=== PATIENT | female | born 1960 | race Caucasian/White ===

== ENCOUNTER 2019-12-06 08:01 | Outpatient (CLI) | payer OTHER, SELFPAY ==
[2019-12-06 08:29] LABS: Basophils Absolute Auto 0.1 K/mm3 (0.0-0.1); Eosinophils Absolute Auto 0.3 K/mm3 (0-0.3); Eosinophils Percent Auto 4.4 % (0-4.4); Hematocrit 43.3 % (37.0-47.0); Hemoglobin 14.5 g/dL (12.0-15.0); Immature Granulocyte Absolute 0.02 K/mm3 (0.00-0.031); Immature Granulocyte Percent A 0.3 % (0-0.5); Mean Corpuscular HGB Conc 33.5 g/dl (32-36); Mean Corpuscular Hemoglobin 30.1 pg (26-34); Mean Platelet Volume 9.9 fl (7.4-10.4); Monocytes Absolute Auto 0.6 K/mm3 (0.1-0.6); Monocytes Percent Auto 8.4 % (2.6-8.5); Neutrophils Absolute Auto 3.7 K/mm3 (1.3-6.7); Neutrophils Percent Auto 53.9 % (45.5-73.1); Platelet Count Result 360 k/mm3 (150-375); Red Blood Count 4.81 M/mm3 (4.2-5.4); Red Cell Distribution Width 12.7 % (11.5-14.5); White Blood Count 6.9 K/mm3 (4.5-10.0)
[2019-12-06 08:36] LABS: Hemoglobin A1C 5.7 % (<5.7)
[2019-12-06 08:40] LABS: Alanine Aminotransferase 15 U/L (4-35); Albumin Level 4.5 g/dL (3.5-5.1); Alkaline Phosphatase 103 U/L (38-126); Anion Gap 11.9 mmol/L (7-16); Aspartate Amino Transferase 24 U/L (14-36); Bilirubin,Total 1.3 mg/dL (0.2-1.3); Blood Urea Nitrogen 14 mg/dL (7-17); Calcium 9.4 mg/dL (8.4-10.2); Carbon Dioxide 30 mmol/L (22-30); Chloride 100 mmol/L (98-107); Cholesterol 244 mg/dL (0-200); Estimated Glomerular Filt Rate > 60; Glucose 103 mg/dL (65-105); HDL Direct 33 mg/dL; Potassium 3.9 mmol/L (3.4-5.0); Sodium 138 mmol/L (137-145); Triglycerides 277 mg/dL (<150)
[2019-12-06 08:51] LABS: LDL Cholesterol Direct 137 mg/dL
[2019-12-06 09:20] LABS: Vitamin D 25 Hydroxy 48.9 ng/mL
== END 2019-12-06 08:02 | disposition home or self-care (01) ==
PROVIDERS: PCP Family Medicine; Visit Provider Nurse Practitioner
DX: R73.9 Hyperglycemia, unspecified (principal); I10 Essential (primary) hypertension; E78.5 Hyperlipidemia, unspecified; E55.9 Vitamin D deficiency, unspecified
CPT/HCPCS: 36415; 80053; 80061; 82306; 83036; 85025

== ENCOUNTER 2020-04-11 12:27 | Outpatient (CLI) | payer OTHER, SELFPAY ==
--- NOTE | ~2020-04-11 | MM_ITS ---
EXAMINATION: MM screening nancy BI w soila HISTORY: Screening mammogram TECHNIQUE: Craniocaudal and mediolateral oblique 3-D tomosynthesis images were obtained and synthetic 2-D images were generated. CAD analysis was submitted and interpreted. COMPARISON: 01/2019, 11/25/2017, 11/21/2015 bilateral digital screening mammogram examinations BREAST PARENCHYMAL COMPOSITION: There are scattered areas of fibroglandular density. FINDINGS: There is no evidence of suspicious mass, calcification, or architectural distortion to sugg est malignancy in either breast. There has been no suspicious interval change. IMPRESSION: 1. No mammographic evidence of malignancy. 2. Recommend routine screening mammography in one year. BI-RADS Category 1: Negative Reviewed, dictated and finalized at location A. 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
--- NOTE | ~2020-04-11 | DEXA_ITS ---
Bone Density Report Name: Sly Schaefer Age: 59 Sex: Female Ethnicity: White Date of : 1960 Indication: osteopenia; height loss; prior fracture; hysterectomy; Referring Provider: SABINE BURGOS Study: Bone densitometry was performed. Exam Date: April 11, 2020 Accession number: [id number] Bone Density: Region BMD T-score Z-score Classification AP Spine (L1-L4) 0.885 -1.5 0.0 Osteopenia Femoral Neck (Left) 0.674 -1.6 -0.3 Osteopenia Total Hip (Left) 0.879 -0.5 0.5 Normal Total Hip Bilateral Avg 0.864 -0.7 0.4 Normal Femoral Neck (Right) 0.675 -1.6 -0.3 Osteopenia Total Hip (Right) 0.848 -0.8 0.2 Normal World Health Organization criteria for BMD impression classify patients as: Normal (T-score at or above -1.0), Osteopenia (T-score between -1.0 and -2.5), or Osteoporosis (T-score at or below -2.5). 10-year Fracture Risk(1): Major Osteoporotic Fracture 13% Hip Fracture 1.1% Reported Risk Factors: [place] (), Neck BMD=0.675, BMI=34.4, previous fracture (1) FRAX(R) Version 3.08. Fracture probability calculated for an untreated patient. Fracture probability may be lower if the patient has received treatment. Previous Exams: Region Exam Age BMD T-score BMD Change BMD Change Date g/cm2 vs Baseline vs Previous AP Spine(L1-L4) 04/11/2020 59 0.885 -1.5 -0.041(-4.4%)# -0.019(-2.1%) 11/25/2017 57 0.904 -1.3 -0.022(-2.3%)# 0.008(0.9%) 11/21/2015 55 0.896 -1.4 -0.030(-3.2%)# 0.039(4.5%)# 01/11/2013 52 0.857 -1.7 -0.069(-7.4%)# -0.078(-8.4%)# 09/17/2010 50 0.935 -1.0 0.009(1.0%) 0.009(1.0%) 11/18/2007 47 0.926 -1.1 Total Hip(Left) 04/11/2020 59 0.879 -0.5 0.009(1.0%)# -0.052(-5.6%)* 11/25/2017 57 0.931 -0.1 0.061(7.0%)# 0.028(3.2%)* 11/21/2015 55 0.902 -0.3 0.032(3.7%)# 0.044(5.1%)# 01/11/2013 52 0.858 -0.7 -0.012(-1.4%)# -0.026(-2.9%)# 09/17/2010 50 0.884 -0.5 0.014(1.6%) 0.014(1.6%) 11/18/2007 47 0.870 -0.6 Total Hip(Right) 04/11/2020 59 0.848 -0.8 0.012(1.4%)# -0.069(-7.5%)* 11/25/2017 57 0.917 -0.2 0.081(9.6%)# 0.055(6.4%)* 11/21/2015 55 0.862 -0.7 0.025(3.0%)# 0.013(1.6%)# 01/11/2013 52 0.849 -0.8 0.012(1.4%)# 0.005(0.6%)# 09/17/2010 50 0.843 -0.8 0.007(0.8%) 0.007(0.8%) 11/18/2007 47 0.837 -0.9 *Denotes significance at 95% confidence level, LSC for AP Spine = 0.022 g/cm2, LSC for Total Hip = 0.027 g/cm2 Clinical Information Provided by Patient:
== END 2020-04-11 12:28 | disposition home or self-care (01) ==
LOC: ANHIMG 12:28
PROVIDERS: PCP Family Medicine; Visit Provider Obstetrics & Gynecology
DX: Z12.31 Encounter for screening mammogram for malignant neoplasm of breast (principal); N95.1 Menopausal and female climacteric states; M85.88 Other specified disorders of bone density and structure, other site; M85.852 Other specified disorders of bone density and structure, left thigh; M85.851 Other specified disorders of bone density and structure, right thigh
CPT/HCPCS: 77063; 77067; 77080

== ENCOUNTER 2020-07-20 11:17 | Outpatient (CLI) | payer OTHER, SELFPAY | END 2020-07-20 11:18 | disposition home or self-care (01) | LOC: ANHCOVIDVC 11:18 | PROVIDERS: PCP Family Medicine | DX: Z23 Encounter for immunization (principal) | CPT/HCPCS: 0001A; 91300 ==

== ENCOUNTER 2020-08-10 11:15 | Outpatient (CLI) | payer OTHER, SELFPAY | END 2020-08-10 11:16 | disposition home or self-care (01) | LOC: ANHCOVIDVC 11:15 | PROVIDERS: PCP Family Medicine | DX: Z23 Encounter for immunization (principal) | CPT/HCPCS: 0002A; 91300 ==

== ENCOUNTER 2020-10-01 08:06 | Outpatient (CLI) | payer OTHER, SELFPAY ==
[2020-10-01 08:26] LABS: Hematocrit 42.6 % (37.0-47.0); Hemoglobin 14.2 g/dL (12.0-15.0); Mean Corpuscular HGB Conc 33.3 g/dl (32-36); Mean Corpuscular Hemoglobin 30.4 pg (26-34); Mean Corpuscular Volume 91.2 fl (80-100); Platelet Count Result 296 k/mm3 (150-375); Red Blood Count 4.67 M/mm3 (4.2-5.4); Red Cell Distribution Width 13.2 % (11.5-14.5); White Blood Count 7.1 K/mm3 (4.5-10.0)
[2020-10-01 08:36] LABS: Alanine Aminotransferase 14 U/L (4-35); Albumin Level 4.4 g/dL (3.5-5.1); Alkaline Phosphatase 76 U/L (38-126); Anion Gap 5 mmol/L (8-16); Aspartate Amino Transferase 25 U/L (14-36); Bilirubin,Total 1.1 mg/dL (0.2-1.3); Blood Urea Nitrogen 17 mg/dL (7-17); Calcium 9.5 mg/dL (8.4-10.2); Carbon Dioxide 32 mmol/L (22-30); Chloride 104 mmol/L (98-107); Cholesterol 146 mg/dL (0-200); Estimated Glomerular Filt Rate > 60; Glucose 98 mg/dL (65-105); HDL Direct 41 mg/dL; Potassium 3.6 mmol/L (3.4-5.0); Sodium 141 mmol/L (137-145); Triglycerides 106 mg/dL (<150)
[2020-10-01 08:46] LABS: LDL Cholesterol Direct 72 mg/dL
[2020-10-01 08:53] LABS: Hemoglobin A1C 5.7 % (<5.7)
== END 2020-10-01 08:07 | disposition home or self-care (01) ==
LOC: ANHLAB 08:07
PROVIDERS: PCP Family Medicine; Visit Provider Nurse Practitioner Family
DX: R53.83 Other fatigue (principal); R73.03 Prediabetes; E78.5 Hyperlipidemia, unspecified; I10 Essential (primary) hypertension
CPT/HCPCS: 36415; 80053; 80061; 83036; 84443; 85027

== ENCOUNTER 2021-08-21 07:35 | Outpatient (CLI) | payer OTHER, SELFPAY ==
--- NOTE | 2021-08-21 07:40 | ECHO_ITS ---
Patient Info Name: Sly Schaefer Age: 61 years : 1960 Gender: Female Ht: 52 in Wt: 172 lbs BSA: 1.75 m2 HR: 88 bpm BP: 154 / 96 mmHg Heart Rhythm: Sinus Rhythm Exam Date: 08/21/2021 8:07 AM Exam Location: [facility] Patient Status: Outpatient Admit Date: 08/21/2021 Staff Ordering Physician: Dyana Pickett NP Supervisor Metal Hanging: Michael Pena, LB, RT Attending Provider: Lis Lorenzana MD Referring Physician: Nieves GOODWIN; Exam Type: CA echo doppler color flow Study Info Indications R01.1 - Cardiac murmur, unspecified Complete two-dimensional, color flow and Doppler transthoracic echocardiogram is performed. Strain analysis performed. Summary 1. Complete two-dimensional, color flow and Doppler transthoracic echocardiogram is performed. 2. Strain analysis performed. 3. Global longitudinal strain is borderline at -16 %. 4. Left ventricular chamber dimension is normal. 5. Left ventricular systolic function is normal, estimated at 65-70%. 6. There is severe asymmetric septal increased left ventricular wall thickness. 7. The left ventricular diastolic function is grade I diastolic dysfunction. 8. The aortic valve is possibly bicuspid. 9. There is mild aortic valve regurgitation. 10. Chordal systolic anterior motion. 11. There is mild mitral valve regurgitation. 12. There is mild tricuspid valve regurgitation. Left Ventricle Global longitudinal strain is borderline at -16 %. Left ventricular chamber dimension is normal. Left ventricular systolic function is normal, estimated at 65-70%. There is severe asymmetric septal increased left ventricular wall thickness. The left ventricular diastolic function is grade I diastolic dysfunction. Right Ventricle Right ventricular chamber dimension is normal. Right ventricular systolic function is normal. Left Atria Left atrial chamber dimension is normal. Right Atria Right atrial chamber dimension is normal. Atrial Septum Intact interatrial septum visualized by color flow imaging. Aortic Valve The aortic valve is possibly bicuspid. There is no aortic valve stenosis. There is mild aortic valve regurgitation. Pulmonic Valve The pulmonic valve is normal. There is no pulmonic valve stenosis. There is trace pulmonic regurgitation. Mitral Valve Chordal systolic anterior motion. The mitral valve has normal leaflets. There is no mitral valve stenosis. There is mild mitral valve regurgitation. Tricuspid Valve The tricuspid valve leaflets are normal. There is no significant tricuspid valve stenosis. There is mild tricuspid valve regurgitation. No pulmonary hypertension, estimated pulmonary arterial systolic pressure is 24 mmHg. Pericardium/Pleural The pericardium appears normal. There is no pericardial effusion. Inferior Vena Cava Normal inferior vena cava with >50% collapse upon inspiration consistent with normal right atrial pressure, 5 mmHg. Aorta The aortic root size at the sinus of Valsalva is normal. Left Ventricular Outflow Tract Name Value Normal LVOT 2D LVOT Diameter 2.0 cm LVOT Doppler LVO
== END 2021-08-21 07:36 | disposition home or self-care (01) ==
LOC: ANHCARD 07:36
PROVIDERS: PCP Family Medicine; Visit Provider Family Medicine
DX: R01.1 Cardiac murmur, unspecified (principal); I35.1 Nonrheumatic aortic (valve) insufficiency; I34.0 Nonrheumatic mitral (valve) insufficiency; I36.1 Nonrheumatic tricuspid (valve) insufficiency
CPT/HCPCS: 93306

== ENCOUNTER 2021-11-20 09:00 | Outpatient (CLI) | payer OTHER, SELFPAY ==
[2021-11-20 11:26] LABS: Alanine Aminotransferase 12 U/L (6-35); Albumin Level 4.2 g/dL (3.5-5.1); Alkaline Phosphatase 75 U/L (38-126); Anion Gap 5 mmol/L (8-16); Aspartate Amino Transferase 21 U/L (14-36); Bilirubin,Total 0.8 mg/dL (0.2-1.3); Blood Urea Nitrogen 17 mg/dL (7-17); Calcium 9.2 mg/dL (8.4-10.2); Carbon Dioxide 31 mmol/L (22-30); Chloride 104 mmol/L (98-107); Cholesterol 159 mg/dL (0-200); Estimated Glomerular Filt Rate > 60; Glucose 96 mg/dL (65-110); HDL Direct 31 mg/dL; Potassium 3.9 mmol/L (3.4-5.0); Sodium 140 mmol/L (137-145); Triglycerides 160 mg/dL (<150)
[2021-11-20 11:37] LABS: LDL Cholesterol Direct 69 mg/dL
[2021-11-20 13:43] LABS: Hemoglobin A1C 5.5 % (<5.7)
== END 2021-11-20 09:01 | disposition home or self-care (01) ==
LOC: ANHLAB 09:02
PROVIDERS: PCP Family Medicine; Visit Provider Nurse Practitioner Family
DX: R73.03 Prediabetes (principal); E78.5 Hyperlipidemia, unspecified; I10 Essential (primary) hypertension
CPT/HCPCS: 36415; 80053; 80061; 83036

== ENCOUNTER 2021-12-17 00:14 | Day surgery (SDC) | payer OTHER, SELFPAY ==
[2021-12-03 13:39] VITALS: BMI 28.4
[2021-12-17 09:51] VITALS: BP 132/81; PULSE 87; RESP 18; TEMP 36.8; O2SAT 98
[2021-12-17] MEDS: LACTATED RINGERS 1,000 ML 150 ML IV CONT (10:00)
--- NOTE | 2021-12-17 10:11 | PM.IMHP ---
H&P: HPI History of Present Illness Date/Time: 12/17/21 10:11 Chief Complaint: Family history of colon cancer. Narrative: This is a 61-year-old white female patient presents for screening colonoscopy. Patient has a family history of colon cancer in her mother. Patient himself had colon polyps in 2014. Patient presents today for surveillance colonoscopy. Patient reports that her current weight appetite bowel movements are normal. She denies abdominal pain. Has had no bleeding. Review of Systems Review of Systems: Review of systems noncontributory. [facility] Past Medical History Medical History GERD without esophagitis Hyperlipidemia Hypertension Osteoarthritis Overactive bladder Renal stones Vitamin D deficiency Surgical History Surgical History H/O wrist surgery (~2012) History of cholecystectomy (~2012) History of colonoscopy (~01/2016) History of hysterectomy (~1993) Hx of lithotripsy Hx of tonsillectomy (~1967) Family History Family History Sibling Family history of thyroid disease Mother Carcinoma of colon Family history of congestive heart failure Acute myocardial infarction Family history of malignant neoplasm of gastrointestinal tract Family history of primary malignant neoplasm of liver Father Family history of alcoholism Patient's father is Family history of liver disease Other Diabetes mellitus Family history of cardiovascular disease Hypertension Social History Social History Smoking status: Former smoker Tobacco type: cigarettes Second hand tobacco smoke exposure: No Smoking end date: 05/11/94 Alcohol intake: never Substance use: never Substance use type: does not use Living arrangements: alone Spiritual care concerns: No Meds Home Medications and Allergies Home Medications Medication Instructions Recorded Confirmed Type mirabegron 50 mg tablet,extended 50 mg PO DAILY 03/03/19 12/17/21 History release 24 hr (Myrbetriq) ascorbic acid (vitamin C) 500 mg 500 mg PO DAILY 11/30/19 12/17/21 History capsule cholecalciferol (vitamin D3) 125 125 mcg PO DAILY 11/30/19 12/17/21 History mcg (5,000 unit) disintegrating tablet estradiol 10 mcg vaginal tablet 10 mcg vaginal 2XW #30 tabs 12/14/21 08/09/22 Rx (Yuvafem) hydrochlorothiazide 12.5 mg capsule 12.5 mg PO DAILY #90 caps 07/11/21 12/17/21 Rx losartan 100 mg tablet 100 mg PO DAILY #90 tabs 07/11/21 12/17/21 Rx rosuvastatin 10 mg tablet 10 mg PO DAILY #90 tabs 07/11/21 12/17/21 Rx fiber 2 cap PO DAILY 12/03/21 12/17/21 History Allergies Allergy/AdvReac Type Severity Reaction Status Date / Time No Known Allergies Allergy Verified 12/17/21 09:49 Vital Signs Vital Signs - 24 hr 12/17/21 09:51 Temperature 98.2 F Pulse Rate 87 Respiratory Rate 18 Blood Pressure 132/81 Pulse Oximetry 98 Oxygen Delivery Room Air Exam Narrative: Physical exam reveals patient to be alert. Vital signs stable. HEENT exam is unremarkable. Patient is anicteric. Lungs are clear to auscultation and percussion. Heart is without murmur or extra sounds. Abdomen bowel sounds are present soft nontender with no organomegaly. Digital external rectal exam is normal. Assessment and Plan Assessment and plan (1) Family history of colon cancer in mother: Code(s): Z80.0 - Family history of malignant neoplasm of digestive organs Status: Acute Assessment and Plan: Patient's mother had colon cancer. For this reason surveillance colonoscopy advised at 5 year intervals. (2) History of colon polyps: Code(s): Z86.010 - Personal history of colonic polyps Status: Acute Assessment and Plan: Patient has a prior history of adenomatous colon
--- NOTE | 2021-12-17 10:41 | WPDANESEPPF ---
Anes - Initial Pre Proc Eval Procedure: Operation Date: 12/17/21 11:00 Proposed Procedures p Screening Colonoscopy - Dakota Yoder MD Date/Time: 12/17/21 10:41 Surgeon: Dakota Yoder MD Pre Op Diagnosis: family hx colon ca, hx colon polyps Patient Data Age: 61 Gender: F Height: 1.55 m Weight: 70.3 kg Last Vital Signs Temp 98.2 F 12/17/21 09:51 Pulse 87 12/17/21 09:51 Resp 18 12/17/21 09:51 BP 132/81 12/17/21 09:51 Pulse Ox 98 12/17/21 09:51 O2 Del Method Room Air 12/17/21 09:51 Allergies Allergy/AdvReac Type Severity Reaction Status Date / Time No Known Allergies Allergy Verified 12/17/21 09:49 Home Medications Medication Instructions Recorded Confirmed Type mirabegron 50 mg tablet,extended 50 mg PO DAILY 03/03/19 12/17/21 History release 24 hr (Myrbetriq) ascorbic acid (vitamin C) 500 mg 500 mg PO DAILY 11/30/19 12/17/21 History capsule cholecalciferol (vitamin D3) 125 125 mcg PO DAILY 11/30/19 12/17/21 History mcg (5,000 unit) disintegrating tablet estradiol 10 mcg vaginal tablet 10 mcg vaginal 2XW #30 tabs 04/23/21 12/17/21 Rx (Yuvafem) hydrochlorothiazide 12.5 mg capsule 12.5 mg PO DAILY #90 caps 07/11/21 12/17/21 Rx losartan 100 mg tablet 100 mg PO DAILY #90 tabs 07/11/21 12/17/21 Rx rosuvastatin 10 mg tablet 10 mg PO DAILY #90 tabs 07/11/21 12/17/21 Rx fiber 2 cap PO DAILY 12/03/21 12/17/21 History Patient hx anesthesia problems: none Family hx anesthesia problems: none Results Review: All pre-operative results and documents have been reviewed as part of the pre-operative evaluation. [facility] Past Medical History Medical History GERD without esophagitis Hyperlipidemia Hypertension Osteoarthritis Overactive bladder Renal stones Vitamin D deficiency Surgical History Surgical History H/O wrist surgery (~2012) History of cholecystectomy (~2012) History of colonoscopy (~01/2016) History of hysterectomy (~1993) Hx of lithotripsy Hx of tonsillectomy (~1967) Family History Family History Sibling Family history of thyroid disease Mother Carcinoma of colon Family history of congestive heart failure Acute myocardial infarction Family history of malignant neoplasm of gastrointestinal tract Family history of primary malignant neoplasm of liver Father Family history of alcoholism Patient's father is Family history of liver disease Other Diabetes mellitus Family history of cardiovascular disease Hypertension Social History Social History Smoking status: Former smoker Tobacco type: cigarettes Second hand tobacco smoke exposure: No Smoking end date: 05/11/94 Alcohol intake: never Substance use: never Substance use type: does not use Living arrangements: alone Spiritual care concerns: No Anes - Eval Final PreProcedure Day of Procedure 12/17/21 10:41 Patient weight: obese Heart: regular rate and rhythm Lungs: clear to auscultation Airway: Mallampati scale class II Neurological: alert and oriented Last oral intake: >/= 8 hours ASA classification: III Emergent: no Anesthetic plan: proceed Anesthesia type and monitoring: general GIVS and standard monitoring Results Review: All pre-operative results and documents have been reviewed as part of the pre-operative evaluation. Informed Consent: The patient's anesthetic plan and its attendant risks and benefits were discussed with the patient/family/POA. Questions were solicited and answers provided to the satisfaction of the patient/family/POA.
[2021-12-17 11:04] VITALS: BP 106/65; PULSE 96; RESP 18; O2SAT 98
[2021-12-17 11:14] VITALS: BP 107/68; PULSE 77; RESP 16; O2SAT 96
[2021-12-17 11:24] VITALS: BP 126/92; PULSE 83; RESP 16; O2SAT 99
== END 2021-12-17 11:32 | disposition home or self-care (01) ==
PROVIDERS: PCP Family Medicine; Visit Provider Internal Medicine Gastroenterology
PROC: 0DJD8ZZ Inspection of Lower Intestinal Tract, Via Natural or Artificial Opening Endoscopic (ICD-10-PCS; CPT 45378; principal; 2021-12-17 11:00)
DX: Z12.11 Encounter for screening for malignant neoplasm of colon (principal); Z80.0 Family history of malignant neoplasm of digestive organs; Z86.010 Personal history of colon polyps; K64.8 Other hemorrhoids; K57.30 Diverticulosis of large intestine without perforation or abscess without bleeding; K21.9 Gastro-esophageal reflux disease without esophagitis; I10 Essential (primary) hypertension; E55.9 Vitamin D deficiency, unspecified; M19.90 Unspecified osteoarthritis, unspecified site; E78.5 Hyperlipidemia, unspecified; N32.81 Overactive bladder; Z87.891 Personal history of nicotine dependence
CPT/HCPCS: 45378; J2704; J7120

== ENCOUNTER 2022-06-11 12:27 | Outpatient (CLI) | payer OTHER, SELFPAY ==
--- NOTE | ~2022-06-11 | DEXA_ITS ---
Bone Density Report Name: PAWAN GARAY Age: 61 Sex: Female Ethnicity: White Date of : 1960 Indication: postmenopausal; screening for osteoporosis; height loss; prior fracture; hysterectomy; secondary osteoporosis; Referring Provider: ENMA YUN Study: Bone densitometry was performed. Exam Date: June 11, 2022 Accession number: [id number] Bone Density: Region BMD T-score Z-score Classification AP Spine(L1-L4) 0.910 -1.2 0.4 Osteopenia Femoral Neck (Left) 0.642 -1.9 -0.5 Osteopenia Total Hip (Left) 0.834 -0.9 0.2 Normal Femoral Neck (Right) 0.621 -2.1 -0.6 Osteopenia Total Hip (Right) 0.816 -1.0 0.1 Normal Total Hip Mean 0.825 -1.0 0.2 Normal World Health Organization criteria for BMD impression classify patients as: Normal (T-score at or above -1.0), Osteopenia (T-score between -1.0 and -2.5), or Osteoporosis (T-score at or below -2.5). 10-year Fracture Risk(1): Major Osteoporotic Fracture 17% Hip Fracture 2.4% Reported Risk Factors: [place] (), Neck BMD=0.621, BMI=29.1, previous fracture, secondary osteoporosis (1) FRAX(R) Version 3.08. Fracture probability calculated for an untreated patient. Fracture probability may be lower if the patient has received treatment. Clinical Information Provided by Patient: Has had a low trauma fracture Has secondary osteoporosis Has used the following medications: Vitamin D Has the following medical conditions: Hysterectomy Patient maximum height was 62.75 Menopause Age: 33 Drinks caffeinated beverages Onset of menses at age 10 Number of children 0 Impression: The patient has low bone mass, based on the Right Femoral Neck T-score. The patient has an estimated ten-year risk of hip fracture of 2.4% and an estimated ten-year risk of major fracture of 17%, based on the WHO FRAX algorithm. The patient has risk factors, including: previous fracture. Discussion: BONE DENSITY IS LOW AT ONE OR MORE SKELETAL SITES. This patient's lowest T-score is low at one or more skeletal sites. It meets the World Health Organization's (WHO) criteria for ?low bone mass? (T-score between -1.0 and -2.5). The patient's 10-year risk of fracture as calculated by FRAX is less than the threshold where pharmacological therapy is recommended by the National Osteoporosis Foundation (NOF). However, all treatment decisions require clinical judgment and consideration of individual patient factors, including patient preferences, comorbidities, previous drug use, risk factors not captured in the FRAX model (e.g., frailty, falls, vitamin D deficiency, increased bone turnover, interval significant decline in bone density) and possible under or overestimation of fracture risk by FRAX. The patient should follow a healthful lifestyle (good nutrition with adequate
--- NOTE | ~2022-06-11 | MM_ITS ---
EXAMINATION: MM screening nancy BI w soila HISTORY: Screening TECHNIQUE: Craniocaudal and mediolateral oblique 3-D tomosynthesis images were obtained and synthetic 2-D images were generated. CAD analysis was submitted and interpreted. COMPARISON: Comparison to multiple prior studies sequentially, with oldest reviewed study dated 07/2012. BREAST PARENCHYMAL COMPOSITION: There are scattered areas of fibroglandular density. FINDINGS: There is developing subareolar asymmetry of the left breast. The right breast is stable wit hout evidence for malignancy. IMPRESSION: 1. Developing left breast asymmetry in the subareolar location. 2. Additional mammographic views and possible breast ultrasound are recommended. BI-RADS Category 0: Incomplete: Needs additional imaging evaluation. Reviewed, dictated and finalized at location A. 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 Developing left breast asymmetry in the subareolar location. 2. Additional mammographic views and possible breast ultrasound are recommended . BI-RADS Category 0: Incomplete: Needs additional imaging evaluation.
== END 2022-06-11 12:28 | disposition home or self-care (01) ==
LOC: ANHIMG 12:28
PROVIDERS: PCP Nurse Practitioner Family; Visit Provider Obstetrics & Gynecology
DX: Z12.31 Encounter for screening mammogram for malignant neoplasm of breast (principal); Z78.0 Asymptomatic menopausal state; R92.8 Other abnormal and inconclusive findings on diagnostic imaging of breast; M85.89 Other specified disorders of bone density and structure, multiple sites
CPT/HCPCS: 77063; 77067; 77080

== ENCOUNTER 2022-07-01 11:06 | Outpatient (CLI) | payer OTHER, SELFPAY ==
--- NOTE | ~2022-07-01 | MMUS_ITS ---
EXAMINATION: MM diagnostic nancy LT w soila, US breast LT limited HISTORY: Mammographic asymmetry reported in subareolar left breast on June 11, 2022 screening mamm ogram TECHNIQUE: Additional 3-D tomosynthesis images of the left breast were performed and synthetic 2-D im ages were generated. CAD analysis was submitted and interpreted. High resolution subareolar left darcy st ultrasound was performed. COMPARISON: 03/11/2020 bilateral screening mammogram FINDINGS: MAMMOGRAPHIC FINDINGS: No suspicious mass or architectural distortion, malignant calcification, skin thickening or retractio n or significant new or developing density is detected. ULTRASOUND: No suspicious mass or shadowing or other significant abnormality is detected in the left subareolar a mark. IMPRESSION: 1. No mammographic evidence of malignancy 2. Routine annual mammographic screening is recommended BI-RADS Category 1: Negative Reviewed, dictated and finalized at location A. 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 No mammographic evidence of malignancy 2. Routine annual mammographic screening is recommended BI-RADS Category 1: Negative
== END 2022-07-01 11:07 | disposition home or self-care (01) ==
PROVIDERS: PCP Nurse Practitioner Family; Visit Provider Nurse Practitioner Family
DX: R92.8 Other abnormal and inconclusive findings on diagnostic imaging of breast (principal)
CPT/HCPCS: 76642; 77061; 77065; G0279

== ENCOUNTER 2022-08-06 08:57 | Outpatient (CLI) | payer OTHER, SELFPAY ==
[2022-08-06 09:15] LABS: Basophils Absolute Auto 0.1 K/mm3 (0.0-0.1); Basophils Percent Auto 1.4 % (0.2-1.2); Eosinophils Absolute Auto 0.3 K/mm3 (0-0.3); Eosinophils Percent Auto 4.6 % (0-4.4); Hematocrit 42.3 % (37.0-47.0); Hemoglobin 13.8 g/dL (12.0-15.0); Immature Granulocyte Absolute 0.02 K/mm3 (0.00-0.031); Immature Granulocyte Percent A 0.3 % (0-0.5); Lymphocytes Absolute Auto 2.17 K/mm3 (0.9-3.2); Lymphocytes Percent Auto 36.9 % (18.3-44.2); Mean Corpuscular HGB Conc 32.6 g/dl (32-36); Mean Corpuscular Hemoglobin 30.7 pg (26-34); Mean Corpuscular Volume 94.2 fl (80-100); Mean Platelet Volume 10.1 fl (7.4-10.4); Monocytes Absolute Auto 0.5 K/mm3 (0.1-0.6); Monocytes Percent Auto 9.2 % (2.6-8.5); Neutrophils Absolute Auto 2.8 K/mm3 (1.3-6.7); Neutrophils Percent Auto 47.6 % (45.5-73.1); Platelet Count Result 276 k/mm3 (150-375); Red Blood Count 4.49 M/mm3 (4.2-5.4); Red Cell Distribution Width 12.3 % (11.5-14.5); White Blood Count 5.9 K/mm3 (4.5-10.0)
[2022-08-06 09:30] LABS: Alanine Aminotransferase 20 U/L (6-35); Albumin Level 4.4 g/dL (3.5-5.1); Alkaline Phosphatase 77 U/L (38-126); Anion Gap 4 mmol/L (8-16); Aspartate Amino Transferase 26 U/L (14-36); Bilirubin,Total 1.3 mg/dL (0.2-1.3); Blood Urea Nitrogen 21 mg/dL (7-17); Calcium 8.9 mg/dL (8.4-10.2); Carbon Dioxide 36 mmol/L (22-30); Chloride 101 mmol/L (98-107); Cholesterol 148 mg/dL (0-200); Estimated Glomerular Filt Rate > 60; Glucose 86 mg/dL (65-110); HDL Direct 44 mg/dL; Potassium 3.9 mmol/L (3.4-5.0); Sodium 141 mmol/L (137-145); Triglycerides 106 mg/dL (<150)
[2022-08-06 09:38] LABS: Hemoglobin A1C 5.2 % (<5.7)
[2022-08-06 09:41] LABS: LDL Cholesterol Direct 69 mg/dL
== END 2022-08-06 08:58 | disposition home or self-care (01) ==
LOC: ANHLAB 08:57
PROVIDERS: PCP Nurse Practitioner Family; Visit Provider Nurse Practitioner Family
DX: Z00.00 Encounter for general adult medical examination without abnormal findings (principal); I10 Essential (primary) hypertension; E78.5 Hyperlipidemia, unspecified; E11.9 Type 2 diabetes mellitus without complications
CPT/HCPCS: 36415; 80053; 80061; 83036; 84443; 85025

== ENCOUNTER 2023-01-19 13:48 | Outpatient (CLI) | payer OTHER, SELFPAY ==
--- NOTE | ~2023-01-19 | MM_ITS ---
EXAMINATION: MM diagnostic nancy LT w soila HISTORY: Follow-up of previously reported mammographic asymmetry, subareolar left breast TECHNIQUE: Additional full field and spot ML, MLO and CC 3-D tomosynthesis images of the left breast were performed and synthetic 2-D images were generated. CAD analysis was submitted and interpreted. COMPARISON: July 01, 2022 diagnostic left mammogram and limited left breast ultrasound June 11, 2022 bilateral screening mammogram 04/11/2020bilateral screening mammogram BREAST PARENCHYMAL COMPOSITION: There are scattered areas of fibroglandular density. FINDINGS: No suspicious mass or architectural distortion, malignant calcification, skin thickening or retraction or significant new or developing density is detected. IMPRESSION: 1. No mammographic evidence of malignancy 2. Routine annual mammographic screening is recommended BI-RADS Category 1: Negative Reviewed, dictated and finalized at location A.
== END 2023-01-19 13:49 | disposition home or self-care (01) ==
PROVIDERS: PCP Family Medicine
DX: N64.4 Mastodynia (principal); R92.8 Other abnormal and inconclusive findings on diagnostic imaging of breast
CPT/HCPCS: 77061; 77065; G0279

== ENCOUNTER 2023-08-19 09:27 | Outpatient (CLI) | payer OTHER, SELFPAY ==
[2023-08-19 09:57] LABS: Basophils Absolute Auto 0.1 K/mm3 (0.0-0.1); Basophils Percent Auto 1.8 % (0.2-1.2); Eosinophils Absolute Auto 0.3 K/mm3 (0-0.3); Eosinophils Percent Auto 5.3 % (0-4.4); Hematocrit 43.1 % (37.0-47.0); Immature Granulocyte Absolute 0.07 K/mm3 (0.00-0.031); Immature Granulocyte Percent A 1.3 % (0-0.5); Lymphocytes Absolute Auto 1.99 K/mm3 (0.9-3.2); Lymphocytes Percent Auto 36.1 % (18.3-44.2); Mean Corpuscular HGB Conc 32.5 g/dl (32-36); Mean Corpuscular Hemoglobin 30.7 pg (26-34); Mean Corpuscular Volume 94.5 fl (80-100); Mean Platelet Volume 10.7 fl (7.4-10.4); Monocytes Absolute Auto 0.6 K/mm3 (0.1-0.6); Neutrophils Absolute Auto 2.5 K/mm3 (1.3-6.7); Neutrophils Percent Auto 45.5 % (45.5-73.1); Platelet Count Result 284 k/mm3 (150-375); Red Blood Count 4.56 M/mm3 (4.2-5.4); White Blood Count 5.5 K/mm3 (4.5-10.0)
[2023-08-19 09:58] LABS: Alanine Aminotransferase 25 U/L (6-35); Albumin Level 4.6 g/dL (3.5-5.1); Alkaline Phosphatase 64 U/L (38-126); Anion Gap 4 mmol/L (4-12); Aspartate Amino Transferase 33 U/L (14-36); Bilirubin,Total 1.4 mg/dL (0.2-1.3); Blood Urea Nitrogen 14 mg/dL (7-17); Calcium 9.2 mg/dL (8.4-10.2); Carbon Dioxide 33 mmol/L (22-30); Chloride 103 mmol/L (98-107); Cholesterol 133 mg/dL (0-200); Estimated Glomerular Filt Rate > 60; Glucose 93 mg/dL (65-110); HDL Direct 49 mg/dL; Potassium 3.7 mmol/L (3.4-5.0); Sodium 140 mmol/L (137-145); Triglycerides 102 mg/dL (<150)
[2023-08-19 10:09] LABS: LDL Cholesterol Direct 71 mg/dL
[2023-08-25 09:52] LABS: Vitamin D 1,25 (OH)2 Total 65 pg/mL (18-72); Vitamin D2 1,25 (OH)2 <8 pg/mL; Vitamin D3 1,25 (OH)2 65 pg/mL
== END 2023-08-19 09:28 | disposition home or self-care (01) ==
LOC: ANHLAB 09:29
PROVIDERS: PCP Family Medicine; Visit Provider Nurse Practitioner Family
DX: Z00.00 Encounter for general adult medical examination without abnormal findings (principal); I10 Essential (primary) hypertension; E55.9 Vitamin D deficiency, unspecified
CPT/HCPCS: 36415; 80053; 80061; 82652; 84443; 85025

== ENCOUNTER 2023-09-01 10:52 | Outpatient (CLI) | payer OTHER, SELFPAY ==
--- NOTE | ~2023-09-01 | XR_ITS ---
EXAM: XR foot LT min 3V DATE: 09/01/2023 11:13 HISTORY: S99.922A - Unspecified injury of left foot, initial encou... . COMPARISON: None available. FINDINGS: Decreased mineralization. No fracture or dislocation. No lytic or blastic lesion. Joint sp aces are maintained. Plantar enthesopathy. No erosion or periosteal change. Soft tissues within malcom l limits. IMPRESSION: No acute osseous finding in the left foot. Reviewed, dictated and finalized at location K.
== END 2023-09-01 10:53 ==
PROVIDERS: PCP Family Medicine; Visit Provider Nurse Practitioner Family
DX: S99.922A Unspecified injury of left foot, initial encounter (principal); X58.XXXA Exposure to other specified factors, initial encounter
CPT/HCPCS: 73630

== ENCOUNTER 2023-09-17 08:11 | Emergency (ER) | payer OTHER, SELFPAY ==
[2023-09-17 08:27] VITALS: BP 134/83; PULSE 62; RESP 16; TEMP 36.6; O2SAT 98
--- NOTE | 2023-09-17 08:45 | ED.GENADULT ---
HPI - General Adult General Chief complaint: Extremity Injury, Lower Stated complaint: Right Leg Pain Time Seen by Provider: 09/17/23 08:39 Source: patient, RN notes reviewed and old records reviewed Mode of arrival: ambulatory Limitations: no limitations History of Present Illness HPI narrative: 63-year-old [facility] to [facility] complaint of right lower leg pain for 2 days. Patient reports 3 days ago she moved her grass and that Thursday morning she woke right lower leg pain which is worse with activity. patient denies pertinent medical history. States she takes 81 mg aspirin daily. Patient denies numbness, tingling, weakness, prior injury, chest pain, shortness of breath or allergies. Patient has attempted to treat at home with 400 mg of ibuprofen with some relief. Patient in no acute distress in exam room Related Data Home Medications Medication Instructions Recorded Confirmed fiber 2 cap PO DAILY 12/03/21 09/17/23 aspirin 81 mg capsule 81 mg PO DAILY 01/09/22 09/17/23 oxybutynin chloride 10 mg 10 mg PO DAILY 02/13/23 09/17/23 tablet,extended release 24 hr melatonin 3 mg capsule 3 mg PO QHS 08/21/23 09/17/23 Allergies Allergy/AdvReac Type Severity Reaction Status Date / Time No Known Allergies Allergy Verified 08/21/23 09:57 Review of Systems Review of Systems: All systems reviewed & are unremarkable except as noted in HPI and below Constitutional: Constitutional: Reports as per HPI, Denies fever(s), Denies frequent falls, Denies malaise and Denies weakness Eyes: Eyes: Reports no additional eye complaints ENT: Reports system reviewed and no additional complaints, except as documented Cardiovascular: Cardiovascular: Reports no additional cardiovascular complaints, Denies chest pain, Denies syncope, Denies rapid heart rate, Denies pedal edema, Denies edema, Denies leg ulcers, Reports leg edema (Right calf), Denies lightheadedness, Denies radiating jaw, neck or arm pain, Denies palpitations, Denies dyspnea and Denies slow heart rate Respiratory: Respiratory: Reports as per HPI, Denies cough and Denies dyspnea Musculoskeletal: Musculoskeletal: Reports as per HPI, Denies deformity, Denies arthralgias, Denies joint swelling, Denies limited range of motion, Denies muscle cramps, Denies muscle weakness, Denies numbness, Denies stiffness and Denies tingling Neurologic: Reports system reviewed and no additional complaints, except as documented Psychiatric: Psychiatric: Reports no additional psychiatric complaints PMFSH Past Medical History Medical History GERD without esophagitis Hyperlipidemia Hypertension Injury of left foot Left foot pain Osteoarthritis Osteopenia Rt fem neck -2.1. Started Fosamax 06/2022. Overactive bladder Renal stones SOB (shortness of breath) SOB (shortness of breath) on exertion Vitamin D deficiency Surgical History Surgical History H/O wrist surgery (~2012) History of cholecystectomy (~2012) History of colonoscopy (~01/2016) History of hysterectomy (~1993) Hx of lithotripsy Hx of tonsillectomy (~1967) Family History Family History Sibling Family history of thyroid disease Mother Carcinoma of colon Family history of congestive heart failure Acute myocardial infarction Family history of malignant neoplasm of gastrointestinal tract Family history of primary malignant neoplasm of liver Father Family history of alcoholism Patient's father is Family history of liver disease Other Diabetes mellitus Family history of cardiovascular disease Hypertension Social History Social History Smoking status: Former smoker Tobacco type: cigarettes Second hand tobacco smoke exposure: No Smoking end date: 05/11/94
== END 2023-09-17 09:10 | disposition home or self-care (01) ==
PROVIDERS: Emergency Provider Nurse Practitioner Family; PCP Family Medicine
DX: S86.911A Strain of unspecified muscle(s) and tendon(s) at lower leg level, right leg, initial encounter (principal); X58.XXXA Exposure to other specified factors, initial encounter; Z79.82 Long term (current) use of aspirin; K21.9 Gastro-esophageal reflux disease without esophagitis; E78.5 Hyperlipidemia, unspecified; I10 Essential (primary) hypertension; M19.90 Unspecified osteoarthritis, unspecified site; M85.80 Other specified disorders of bone density and structure, unspecified site
CPT/HCPCS: 99212; G0463

== ENCOUNTER 2023-10-01 10:29 | Outpatient (CLI) | payer OTHER, SELFPAY ==
--- NOTE | ~2023-10-01 | XR_ITS ---
Right Knee Technique: AP, lateral, and sunrise views were obtained. Clinical History: Pain Findings: No fracture or dislocation is seen. Osseous alignment is anatomic. Mild tricompartmental de generative spurring noted. Soft tissues are unremarkable. No joint effusion is seen. Impression: Mild degenerative spurring, as above. Reviewed, dictated and finalized at location M. Impression: Mild degenerative spurring, as above.
== END 2023-10-01 10:30 ==
PROVIDERS: PCP Family Medicine; Visit Provider Family Medicine
DX: M25.561 Pain in right knee (principal)
CPT/HCPCS: 73564

== ENCOUNTER 2023-10-09 09:24 | Outpatient (CLI) | payer OTHER, SELFPAY ==
--- NOTE | 2023-10-09 11:01 | WPDPFTINT ---
PFT Procedure Performed PFT Procedure Performed Spirometry with Pre/Post Bronchodilator Plethysmography (Lung Vol) Diffusing Cap (DLCO) Flow Vol Loop PFT Interpretation Lung volumes were measured with the body plethysmography method. Lung volumes are unremarkable. Spirometry showed normal expiratory flow rates and a normal FEV1 to FVC ratio of 83%. Following administration of a bronchodilator there was no significant increase in expiratory flow rates. Lung diffusion capacity is within the normal range at 78% predicted. The flow volume loop is unremarkable. Impression: Spirometry, lung volumes, and lung diffusion capacity all within the normal range.
--- NOTE | 2023-10-09 11:02 | WPDSIXMINUTE ---
Six Minute Walk Procedure Procedure Performed Pulmonary Stress Test (6 min walk) Six Minute Walk Six Minute Walk: This 6 minute walk test was carried out with the patient breathing ambient air. The pre walk oxyhemoglobin saturation was 97%. The patient walked 1000 m with no stops during testing. During the walk the oxyhemoglobin saturation remained in the range of 95% to 97%. Impression: No evidence of oxyhemoglobin desaturation on this testing.
== END 2023-10-09 09:25 | disposition home or self-care (01) ==
LOC: ANHPFT 09:25
PROVIDERS: PCP Family Medicine; Visit Provider Nurse Practitioner Family
DX: R06.02 Shortness of breath (principal)
CPT/HCPCS: 94060; 94618; 94726; 94729

== ENCOUNTER 2023-12-01 08:00 | Outpatient (RCR) | payer OTHER, SELFPAY ==
--- NOTE | 2023-10-23 13:17 | PTOPEVAL1 ---
Assessment and note entered by Cesar Kessler SPT Evaluation Information Assessment Status Evaluation Diagnosis R knee pain Onset september 2023 Subjective Information Pt states she had a bad flare up in September but is feeling better now. She wants to get back to walking 1 hour each morning. pt states she is feeling better now and just wants to get stronger and more motion. Reported Pain Level Pain Score 0: Self Report Assessment PT Clinical Summary Pt reports to physical therapy after imaging showing mild arthritis in R knee. Pt states the pain got worse this September and she had bad calf cramps which resolved after changing medications. Upon palpation pt was very sensitive to the touch around joint line and patella. Pt gait showed excessive lean on RLE consistent with gluteus medius weakness which was confirmed by MMT. Pt had limited ROM in Montrell ankle dorsiflexion, and hip abduction. Pt displayed gross LE weakness with R hip abd being 2+/5. 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 Plan of Care Interventions Electrical Stimulation,Gait Training,Hot Pack/Cold Pack,Manual Therapy,Neuro Re-education,Patient/ Caregiver Educati,Therapeutic Activities, Therapeutic Exercise,Other PT Services Indicated Yes These treatments will address the objective and functional deficits as defined above. The patient will be advanced safely and appropriately in order for the patient to progress towards his/her prior level of function. Additional exercises will be introduced and as well as a comprehensive home exercise program upon discharge, if needed, ?to ensure carryover of functional gains achieved in the clinic. This treatment plan has been reviewed and agreement upon by the patient.
--- NOTE | 2023-10-23 13:18 | OPREHPOC ---
Outpatient Therapy Plan of Care This is a Multidisciplinary Plan of Care that may contain components documented by all disciplines (PT, OT, and ST.) PT Problem 1 PT Problem #1 Knowledge Deficit PT Goal 1 Goal pt will display independence of HEP Target Visit 4 PT Problem 2 PT Problem #2 Impaired Flexibility PT Goal 1 Goal Pt will display 0 degrees of knee extension Montrell to show improvements in gait pattern Target Visit 7 PT Goal 2 Goal Pt will show a 5 degree or more improvement in Montrell ankle dorsiflexion to improve gait mechanics and R knee alignment Target Visit 7 PT Problem 3 PT Problem #3 Impaired Strength PT Goal 1 Goal Pt will display 4/5 Montrell hip abd strength Target Visit 7 PT Problem 4 PT Problem #4 Impaired Gait PT Goal 1 Goal pt will maintain neutral pelvic alignment and equal step length during gait assessment Target Visit 4 PT Goal 2 Goal pt will self repot walking for 1 hour with no increase in R knee pain Target Visit 7
--- NOTE | 2023-12-01 08:48 | OPREHPOC ---
Outpatient Therapy Plan of Care This is a Multidisciplinary Plan of Care that may contain components documented by all disciplines (PT, OT, and ST.) PT Problem 1 PT Problem #1 Knowledge Deficit PT Goal 1 Goal pt will display independence of HEP Target Visit 4 Progress Met PT Problem 2 PT Problem #2 Impaired Flexibility PT Goal 1 Goal Pt will display 0 degrees of knee extension Montrell to show improvements in gait pattern Target Visit 7 Progress Partially Met Comment Missing mild on R LE PT Goal 2 Goal Pt will show a 5 degree or more improvement in Montrell ankle dorsiflexion to improve gait mechanics and R knee alignment Target Visit 7 Progress Met PT Problem 3 PT Problem #3 Impaired Strength PT Goal 1 Goal Pt will display 4/5 Montrell hip abd strength Target Visit 7 Progress Partially Met PT Problem 4 PT Problem #4 Impaired Gait PT Goal 1 Goal pt will maintain neutral pelvic alignment and equal step length during gait assessment Target Visit 4 Progress Met PT Goal 2 Goal pt will self repot walking for 1 hour with no increase in R knee pain Target Visit 7 Progress Met
--- NOTE | 2023-12-01 08:48 | PTOPDC ---
Assessment and note entered by Karri Samson, PT Evaluation Information Assessment Status Discharge Diagnosis R knee pain Onset september 2023 Subjective Information Reports that overall she is doing better. She does not quite feel that she is at 100%, but therapy and exercise have really helped. Has a good feel for exercise and feels that everything is going well at home. She has been trying to do them consistently. Reported Pain Level Pain Score 0: Self Report Assessment PT Clinical Summary Patient has met all goals for therapy at this time and is suitable for discharge to [facility]. Continues to show some weakness and will benefit from continuation of independent exercise to meet retirement strengthening goals. Plan of Care PT Services Indicated Yes
== END 2023-12-01 09:00 | disposition home or self-care (01) ==
LOC: ANHGOSHPT 08:00
PROVIDERS: PCP Family Medicine; Visit Provider Family Medicine
DX: M25.561 Pain in right knee (principal); M79.605 Pain in left leg
CPT/HCPCS: 97110; 97112; 97140; 97161; 97530

== ENCOUNTER 2024-08-06 09:26 | Emergency (ER) | payer MEDICARE, SELFPAY ==
--- NOTE | ~2024-08-06 | XR_ITS ---
EXAMINATION: XR knee RT 3V DATE: 08/06/2024 10:32 INDICATION: Right knee pain. TECHNIQUE: 3 views of right knee were obtained. COMPARISON: Right knee radiographs 10/01/2023 FINDINGS: Alignment is normal. No fracture. There is mild tricompartmental osteoarthritis. There is a moderate-sized knee joint effusion. IMPRESSION: 1. Mild right knee osteoarthritis. 2. Moderate-sized right knee joint effusion. Reviewed, dictated and finalized at location A.
[2024-08-06 09:28] VITALS: BP 149/81; PULSE 90; RESP 15; TEMP 36.7; O2SAT 100
--- OUTSIDE RECORDS SUMMARY | 2024-08-06 09:28 | XMS_ITS | CONTINUITY OF CARE DOCUMENT ---
Author Name cameron barnes Address Unknown Organization [facility] Address [id number] [place] [address] [address] [place] [address] Phone [phone] Care Team Providers Care Associate Name Role Phone John VALENTIN, Florentin Unavailable CARLITA NOLASCO MD Unavailable INSURANCE PROVIDERS Payer name Policy type / Coverage type Mobile red alliance party ID [employer] OPEN ACCESS Other [id number]
--- OUTSIDE RECORDS SUMMARY | 2024-08-06 09:28 | XMS_ITS | Encounter Summary ---
Author Organization [facility] Address [address] [place] [address] Care Team Providers Care Fern Picker Name Role Phone Unavailable Primary Care Provider Unavailabl e Encounter Details Date Type Department Care Team (Late st Contact Info) Description 11/18/2018 Lab Requisition [facility] [address] [place] [address] Dyana Grijalva MD [address] [place], [place] [id number] Gross hematuria Social History Tobacco Use Types Packs/Day Years Used Date Smoking Tobacco: Never Assessed Sex and Gender Information Value Date Recorded Sex Assigned at Not on file Gender Identity Not on file Sexual Orientation Not on file documented as of this encounter Plan of Treatment Not on file documented as of this encounter Procedures Procedure Name Priority Date/Time Associated Diagnosis Comments PATHOLOGY TISSUE Routine 11/16/2018 1:28 PM CDT Gross hematuria documented in this encounter Results * PATHOLOGY TISSUE (11/16/2018 1:28 PM CDT) Case Report Surgical Pathology Report Case: [id number] Authorizing Provider: Dyana Grijalva MD Collected: 11/16/2018 01:28 PM Pathologist: Arnulfo Moseley MD Received: 11/18/2018 01:28 PM Specimen: Urine 11/19/2018 9:48 AM CDT [facility] Final Diagnosis Urine, voided, Thin Prep, cytology: - Negative for a high-grade urothelial neoplasm Benign urothelial cells admixed with benign squamous cells Some lysed red blood cells are seen in the background 11/19/2018 9:48 AM CDT [facility] Microscopic Description and Comment Performed. 11/19/2018 9:48 AM CDT [facility] Clinical History Hematuria. 11/19/2018 9:48 AM [facility] Gross Description Prepared slide (1) received from [facility] labeled [id number], Sly Schaefer . All material will be returned. 11/19/2018 9:48 AM [facility] Disclaimer The performance characteristics of all immunohistochemical and indirect immunofluorescence stains (if any) cited in this report were determined by the Histopathology Laboratory of [facility]. Some of these tests were developed by our own laboratory and have not been cleared or approved by the US Food and Drug Administration. The FDA does not require this test to go through premarket FDA review. These tests are used for clinical purposes. They should not be regarded as investigational or for research. This laboratory is certified under the Clinical Laboratory Improvement Amendments (CLIA) as qualified to perform high complexity clinical laboratory testing. This case has been personally reviewed and interpreted by the attending (teaching) pathologist. 11/19/2018 9:48 AM [facility] Embedded Images 11/19/2018 9:48 AM [facility] Pathology/Cytolo gy URINE / Unknown 11/16/2018 1:28 PM CDT 11/18/2018 1:28 PM CDT Dyana Grijalva MD LAB - PATHOLOGY/CYTO LOGY ORDERABLES [facility] [address] [phone] documented in this encounter Visit Diagnoses Diagnosis Gross hematuria documented in this encounter
--- OUTSIDE RECORDS SUMMARY | 2024-08-06 09:28 | XMS_ITS | Clinical Summary ---
Author Organization [facility] Address [address] [place] [address] Care Team Providers Care Universal Worker Assisted Living Name Role Phone Unavailable Primary Care Provider Unavailabl e Source Comments [facility] [employer],non-owned Affiliates and Associated Physician Practices is amultiple site organization consisting of ambulatory clinics and hospital sitesin [place], [place], [place] and [place]. This disclosure is being madepursuant to the Care Everywhere program and may not contain all information available regarding this patient. Last updated 18.[facility] [employer] Social History Tobacco Use Types Packs/Day Years Used Date Smoking Tobacco: Never Assessed Sex and Gender Information Value Date Recorded Sex Assigned at Not on file Gender Identity Not on file Sexual Orientation Not on file Plan of Treatment Health Maintenance Due Date Last Done Comments BONE DENSITY TESTING 1959 COLOGUARD (AGES 45-75) - COL ON CA SCREENING 1959 COLON MONITORING 1959 COLONOSCOPY - COLON CA SCREENING 1959 CT COLONOGRAPHY - COLON CA SCREENING 1959 Colorectal Cancer Screening 1959 FIT - COLON CA SCREENING 1959 FLEX SIG - COLON CA SCREENING 1959 LIPID TESTING 1959 MAMMOGRAM 1959 PAP SMEAR 1959 HIV SCREENING 1974 HEPATITIS C SCREENING 06/25/1977 DTAP/TDAP/TD VACCINES (1 - Tdap) 1978 PNEUMOCOCCAL VACCINE 50+ (1 of 1 - PCV) 2009 ZOSTER VACCINE (1 of 2) 2009 COVID-19 VACCINE ( - 2023-2 5 season) 2024 INFLUENZA VACCINE (#1) 2024 DEPRESSION SCREENING 05/11/2024 Respiratory Syncytial Virus (RSV) Vaccine Pt: or over 60 yrs (1 - 1-dose 75+ series) 2034 HEPATITIS B VACCINE Aged Out No longe r eligible based on patient's age to complete this topic HIB VACCINE Aged Out No longer eligi ble based on patient's age to complete this topic HPV VACCINE Aged Out No longer eligi ble based on patient's age to complete this topic MENINGOCOCCAL (Group B) VACC INE SHARED DECISION-MAKING Aged Out No longer eligibl e based on patient's age to complete this topic MENINGOCOCCAL GROUPS A/C/Y/W VACCINE Aged Out No longer eligible b ased on patient's age to complete this topic PNEUMOCOCCAL VACCINE Aged Out No long er eligible based on patient's age to complete this topic
--- OUTSIDE RECORDS SUMMARY | 2024-08-06 09:29 | XMS_ITS | Clinical Summary ---
Author Organization [facility] [address] Address [address] [place] [address] Care Team Providers Care Equipment Technician Name Role Phone Cooper Lorenzana MD Primary Care Provider Allergies No known active allergies Medications estradioL (VAGIFEM) 10 mcg tablet Vagifem 10 mcg vaginal tablet INSERT 1 TABLET VAGINALLY QD FOR 14 DAYS THEN INSERT 1 T VAGINALLY TWICE WEEKLY THEREAFTER Active losartan (COZAAR) 100 mg tablet Take 1 tablet (100 mg total) by mouth daily 8 Active hydroCHLOROthia zide (MICROZIDE) 12.5 mg capsule Take 1 capsule (12.5 mg total) by mouth daily 2 Active rosuvastatin (CRESTOR) 10 mg tablet Take 1 tablet (10 mg total) by mouth daily 2 Active aspirin 81 mg enteric coated tabletIndicatio ns:Abnormal stress test Take 1 tablet (81 mg total) by mouth daily 30 tablet 11 2 Active alendronate (FOSAMAX) 70 mg tablet 3 Active oxyBUTYnin XL (DITROPAN-XL) 10 mg 24 hr tablet Take 1 tablet (10 mg total) by mouth nightly at bedtime. 3 Active Active Problems Problem Noted Date Diagnosed Date Palpitations 03/14/2024 Other chest pain 09/16/2017 Murmur Hypertension Hyperlipidemia Abnormal stress test Surgical History Surgery Date Site/Laterality Comments WRIST SURGERY CHOLECYSTECTOMY 05/11/2012 - 05/10/2013 HYSTERECTOMY 05/11/1993 - 05/10/1994 TONSILLECTOMY LITHOTRIPSY Medical History Medical History Date Comments Murmur Hyperlipidemia Hypertension GERD (gastroesophageal reflux disease) Renal stones Overactive bladder Family History Medical History Relation Name Comments Alcohol abuse Father Head injury from attack Father Liver disease Father Cancer Mother Colon cancer Mother Heart attack Mother Relation Name Status Comments Father (Age 54) Mother (Age 67) Social History Tobacco Use Types Packs/Day Years Used Date Smoking Tobacco: Former Cigarettes Q uit: 1994 Smokeless Tobacco: Never Tobacco Cessation:Counseling Given: Not Answered Alcohol Use Standard Drinks/Week Comments No 0 (1 standard drink = 0.6 oz pur e alcohol) Comments Unknown Sex and Gender Information Value Date Recorded Sex Assigned at Not on file Legal Sex Female 3:06 AM RN CLINICAL QUALITY Gender Identity Not on file Sexual Orientation Not on file Obstetrics History Last Filed Vital Signs Vital Sign Reading Time Taken Comments Blood Pressure 120/70 03/14/2024 10:19 AM RN CLINICAL QUALITY Pulse 91 03/14/2024 10:19 AM RN CLINICAL QUALITY Temperature - - Respiratory Rate - - Oxygen Saturation 97% 03/09/2023 8:53 AM CDT Inhaled Oxygen Concentration - - Weight 72.6 kg (160 lb) 03/14/2024 10:19 AM RN CLINICAL QUALITY Height 154.9 cm (5' 1 ) 03/14/2024 10:19 AM RN CLINICAL QUALITY Body Mass Index 30.23 03/14/2024 10:19 AM RN CLINICAL QUALITY Plan of Treatment Health Maintenance Due Date Last Done Comments Breast Cancer Screening-Mammogram 1959 Colon Cancer Screening-Colonoscopy 1959 Depression Screening 1959 Fall Risk Assessment 1959 Hepatitis C Screening 1959 Osteoporosis Screening-Bone Density Scan 1959 Hepatitis B Screening 1977 Pneumococcal vaccine 65+ (1 of 1 - PCV) 2009 Zoster Vaccine (1 of 2) 2009 DTaP/Tdap/Td Vaccine (2 - Td or Tdap) 05/11/202005/2010 Covid-19 Vaccine (4 - season) 2024 04/28/2021, 08/10/2020, 07/20/2020 Influenza Vaccine (#1) 2024 Well Visit 65+ [address] [facility] [id number] Care Teams Equipment Technician Relationship Specialty Start Date End Date Cooper Lorenzana MD PCP - General Family Practice 08/26/21
--- OUTSIDE RECORDS SUMMARY | 2024-08-06 09:29 | XMS_ITS | Referral Summary ---
Author Organization [facility] [address] Address [address] [place] [address] Care Team Providers Care Delinquency Prevention Social Worker Name Role Phone Cooper Lorenzana MD Primary [...] 09/16/2017 Murmur Hypertension Hyperlipidemia Abnormal stress test Social History Tobacco Use Types Packs/Day Years Used Date Smoking Tobacco: Former Cigarettes Q uit: 1994 Smokeless Tobacco: Never Tobacco Cessation:Counseling Given: Not Answered Alcohol Use Standard Drinks/Week Comments No 0 (1 standard drink = 0.6 oz pur e alcohol) Comments Unknown Sex and Gender Information Value Date Recorded Sex Assigned at Not on file 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 Sex 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 Gender Identity Not on file Sexual Orientation Not on file Last Filed Vital Signs Vital Sign Reading Time Taken Comments Blood Pressure 120/70 03/14/2024 10:19 AM LOCAL TRUCK DRIVER Pulse 91 03/14/2024 10:19 AM LOCAL TRUCK DRIVER Temperature - - Respiratory Rate - - Oxygen Saturation 97% 03/09/2023 8:53 AM CDT Inhaled Oxygen Concentration - - Weight 72.6 kg (160 lb) 03/14/2024 10:19 AM LOCAL TRUCK DRIVER Height 154.9 cm (5' 1 ) 03/14/2024 10:19 AM LOCAL TRUCK DRIVER Body Mass Index 30.23 03/14/2024 10:19 AM LOCAL TRUCK DRIVER Plan of Treatment Not on file Insurance [id number] [facility] [id number] Care Teams Delinquency Prevention Social Worker Relationship Specialty Start Date End Date Cooper Lorenzana MD PCP - General Family Practice 08/26/21
--- OUTSIDE RECORDS SUMMARY | 2024-08-06 10:17 | XMS_ITS | CONTINUITY OF CARE DOCUMENT ---
Author Name cameron barnes Address Unknown Organization [facility] Address [address] [place] [address] [address] [place] [address] Phone [phone] Care Team Providers Care Com Writer Name Role Phone John VALENTIN, Florentin Unavailable CARLITA NOLASCO MD Unavailable [phone] INSURANCE PROVIDERS Payer name Policy type / Coverage type [place] red constitution party ID [employer] OPEN ACCESS Other [id number]
--- OUTSIDE RECORDS SUMMARY | 2024-08-06 10:17 | XMS_ITS | Referral Summary ---
Author Organization [facility] [address] Address [address] [place] [address] Care Team Providers Care Roving Can Tender Name Role Phone Cooper Lorenzana MD Primary [...] on file Legal Sex Female 3:06 AM PLASTIC DIE MAKER APPRENTICE Gender Identity Not on file Sexual Orientation Not on file Last Filed Vital Signs Vital Sign Reading Time Taken Comments Blood Pressure 120/70 03/14/2024 10:19 AM PLASTIC DIE MAKER APPRENTICE Pulse 91 03/14/2024 10:19 AM PLASTIC DIE MAKER APPRENTICE Temperature - - Respiratory Rate - - Oxygen Saturation 97% 03/09/2023 8:53 AM CDT Inhaled Oxygen Concentration - - Weight 72.6 kg (160 lb) 03/14/2024 10:19 AM PLASTIC DIE MAKER APPRENTICE Height 154.9 cm (5' 1 ) 03/14/2024 10:19 AM PLASTIC DIE MAKER APPRENTICE Body Mass Index 30.23 03/14/2024 10:19 AM PLASTIC DIE MAKER APPRENTICE Plan of Treatment Not on file Insurance [employer] [facility] [id number] Care Teams Roving Can Tender Relationship Specialty Start Date End Date Cooper Lorenzana MD PCP - General Family Practice 08/26/21
--- OUTSIDE RECORDS SUMMARY | 2024-08-06 10:17 | XMS_ITS | Encounter Summary ---
Author Organization [facility] Address [address] [place] [address] Care Team Providers Care Freight Rate Specialist Name Role Phone Unavailable Primary Care Provider Unavailabl e Encounter Details Date Type Department Care Team (Late st Contact Info) Description 11/18/2018 Lab Requisition [facility] [address] [place] [address] Dyana Grijalva MD [address] [place], [place] [id number] Gross hematuria Social History Tobacco Use Types [...] CDT) Case Report Surgical Pathology Report Case: [id number] Authorizing Provider: Dyana Grijalva MD Collected: 11/16/2018 [...] LAB Clinical History Hematuria. 11/19/2018 9:48 AM [facility] Gross Description Prepared slide (1) received from [facility] labeled [id number], Sly Schaefer . All material will be returned. 11/19/2018 9:48 AM [facility] Disclaimer The performance characteristics of all immunohistochemical and indirect immunofluorescence stains (if any) cited in this report were determined by the Histopathology Laboratory of [facility]. Some of these tests were developed [...] the attending (teaching) pathologist. 11/19/2018 9:48 AM [facility] Embedded Images 11/19/2018 9:48 AM [facility] Pathology/Cytolo gy URINE / Unknown 11/16/2018 1:28 PM CDT 11/18/2018 1:28 PM CDT Dyana Grijalva MD LAB - PATHOLOGY/CYTO LOGY ORDERABLES [facility] [address] [phone] documented in this encounter Visit Diagnoses Diagnosis Gross hematuria documented in this encounter
--- OUTSIDE RECORDS SUMMARY | 2024-08-06 10:17 | XMS_ITS | Clinical Summary ---
Author Organization [facility] Address [address] [place] [address] Care Team Providers Care Hot Knife Foxing Cutter Name Role Phone Unavailable Primary Care Provider Unavailabl e Source Comments [facility] [employer],non-owned Affiliates and Associated Physician Practices is amultiple site organization consisting of ambulatory clinics and hospital sitesin [place], [place], [place] and [place]. This disclosure is being madepursuant to the Care Everywhere program and may not contain all information available regarding this patient. Last updated 18.[facility] [employer] Social History Tobacco Use Types Packs/Day Years [...] on patient's age to complete this topic Insurance Payer Benefit Plan / Group Subscriber ID Effective Dates Phone Address Type [employer] [facility] [id number] Effective for all dates [address] [place] [address] O
--- OUTSIDE RECORDS SUMMARY | 2024-08-06 10:17 | XMS_ITS | Clinical Summary ---
Author Organization [facility] [address] Address [address] [place] [address] Care Team Providers Care Community Health Navigator Name Role Phone Cooper Lorenzana MD Primary [...] on file Legal Sex Female 3:06 AM POULTRY HUSBANDRY TEACHER Gender Identity Not on file Sexual Orientation Not on file Obstetrics History Last Filed Vital Signs Vital Sign Reading Time Taken Comments Blood Pressure 120/70 03/14/2024 10:19 AM POULTRY HUSBANDRY TEACHER Pulse 91 03/14/2024 10:19 AM POULTRY HUSBANDRY TEACHER Temperature - - Respiratory Rate - - Oxygen Saturation 97% 03/09/2023 8:53 AM CDT Inhaled Oxygen Concentration - - Weight 72.6 kg (160 lb) 03/14/2024 10:19 AM POULTRY HUSBANDRY TEACHER Height 154.9 cm (5' 1 ) 03/14/2024 10:19 AM POULTRY HUSBANDRY TEACHER Body Mass Index 30.23 03/14/2024 10:19 AM POULTRY HUSBANDRY TEACHER Plan of Treatment Health Maintenance Due Date [...] (#1) 2024 Well Visit 65+ 2024 Insurance [employer] [facility] [id number] Care Teams Community Health Navigator Relationship Specialty Start Date End Date Cooper Lorenzana MD PCP - General Family Practice 08/26/21
--- NOTE | 2024-08-06 10:28 | ED.EXTPRO ---
HPI - Extremity Problem General Chief complaint: Extremity Problem,Nontraumatic Stated complaint: R knee pain Time Seen by Provider: 08/06/24 10:02 History of Present Illness HPI Narrative: 64-year-old female with a past medical history including hypertension and osteoarthritis. She presents to the emergency department with right knee pain. No trauma associated with this she has been having couple weeks of right knee pain that is worsening specially at night. She denies any recent injuries or recent trauma. She was told she had osteoarthritis almost a year ago without any injury. Took Tylenol at home without any relief of her symptoms. She does some swelling over the lateral proximal aspect of her right knee and tenderness around her kneecap itself. No calf swelling or calf cramping. No charley horse sensation or any signs of DVT. No history of DVT or PE. Was otherwise in her normal state of health. Ambulates occasionally with a cane. Related Data Home Medications ?Medication ?Instructions ?Recorded ?Confirmed ?Last Taken ?Type fiber 2 cap PO DAILY 12/03/21 03/15/24 12/16/21 History aspirin 81 mg capsule 81 mg PO DAILY 01/09/22 03/15/24 Unknown History oxybutynin chloride 10 mg 10 mg PO DAILY 02/13/23 03/15/24 Unknown History tablet,extended release 24 hr melatonin 3 mg capsule 3 mg PO QHS 08/21/23 03/15/24 Unknown History Allergies Allergy/AdvReac Type Severity Reaction Status Date / Time No Known Allergies Allergy Verified 08/06/24 09:27 Review of Systems Review of Systems: As reviewed above in HPI [facility] Past Medical History Medical History Left foot pain Injury of left foot SOB (shortness of breath) SOB (shortness of breath) on exertion Osteopenia Rt fem neck -2.1. Started Fosamax 06/2022. Overactive bladder Vitamin D deficiency GERD without esophagitis Renal stones Osteoarthritis Hyperlipidemia Hypertension Surgical History Surgical History Hx of lithotripsy History of hysterectomy (~1993) H/O wrist surgery (~2012) History of cholecystectomy (~2012) History of colonoscopy (~01/2016) Hx of tonsillectomy (~1967) Family History Family History Sibling Family history of thyroid disease Mother Carcinoma of colon Family history of congestive heart failure Acute myocardial infarction Family history of malignant neoplasm of gastrointestinal tract Family history of primary malignant neoplasm of liver Father Family history of alcoholism Patient's father is Family history of liver disease Other Diabetes mellitus Family history of cardiovascular disease Hypertension Social History Social History Smoking status: Former smoker Tobacco type: cigarettes Second hand tobacco smoke exposure: No Smoking end date: 05/11/94 Alcohol intake: never Substance use: never Substance use type: does not use Lack of Transportation: No Lack of Food: Never True Current Housing: I Have Housing Concerned About Future Housing: No Difficulty Paying Gas/Electric Bills: No Difficulty Paying for Meds: No Currently Unemployed: No Education: Master's Degree or Higher Difficulty w/ Childcare or Family Care: No Living arrangements: alone Spiritual care concerns: No Exam Narrative: GENERAL: [Well-appearing, well-nourished, and in no acute distress.] HEAD: [Normocephalic, atraumatic.] EYES: [PERRLA and EOMI.] ENT: Nares clear, no rhinorrhea or epistaxis. Mucous membranes moist. NECK: Supple. CHEST: [Clear to auscultation. No respiratory distress.] HEART: [Regular rate and rhythm]. No murmur heard. [Normal peripheral pulses.] ABDOMEN: [Soft, nondistended], [nontender], [No rigidity or guarding] EXTREMITIES: Normal range of motion. [No edema.] Has been tenderness over the lateral facet of the patella, tenderness over the top of the patella where the quadriceps tendon is located, no overlying skin changes. No palpable effusions. No laxity with valgus or varus stress testing. Negative Heide's grind testing. Negative Maine's testing. SKIN: Warm, dry, no rash. NEURO: [No focal deficits]. Alert and oriented [x3.] PSYCH: [Normal mood and affect.] Course Vital Signs Vital signs: Vital Signs Temperature 36.7 C 08/06/24 09:28 Pulse Rate 90 08/06/24 09:28 Respiratory Rate 15 08/06/24 09:28 Blood Pressure 149/81 H 08/06/24 09:28 Pulse Oximetry 100 08/06/24 09:28 Oxygen Delivery Room Air 08/06/24 09:28 Temperature 36.7 C 08/06/24 09:28 Pulse Rate 85 08/06/24 10:30 Respiratory Rate 16 08/06/24 10:30 Blood Pressure 143/74 H 08/06/24 10:30 Pulse Oximetry 98 08/06/24 10:30 Oxygen Delivery Room Air 08/06/24 09:28 MDM - Extremity (Nontraumatic) MDM Narrative Medical decision making narrative: 64-year-old female with history of hypertension osteoarthritis presenting with atraumatic right knee pain. She has osteoarthritis in the knee and wears a knee brace and uses a cane occasionally. Physical exam shows tenderness over the lateral facet of the patella as well as tenderness over the quadriceps insertion site on the lateral aspect of the right patella. No overlying skin changes, no palpable effusion. No laxity with stress testing of the knee joint. No signs of a DVT. 2+ dorsalis pedis pulse. Likely patient has tricompartmental osteoarthritis exacerbation, less likely other causes of arthritis such as rheumatoid or infectious causes. She is afebrile with no overlying skin changes or warmth. No palpable effusions. No suspicion presently for DVT on exam. Right knee x-rays were obtained, Toradol given for analgesia. Knee immobilizer will be provided upon discharge. Patient's x-ray shows a knee effusion as well as polyarticular truck are part mental arthritis. Knee effusion likely secondary to the arthritis. She will be prescribed ketorolac and ibuprofen and encouraged to follow-up with her primary care provider. She is provide any immobilizer. Safe for discharge home at this time. Discharge Plan Discharge Clinical Impression: Tricompartment osteoarthritis of knee, Effusion of knee Patient Disposition: Home, Self-Care Condition: Stable Instructions: Antibiotic Form, Osteoarthritis (DC), Swollen Knee Joint (ED) Additional Instructions: You have tricompartmental arthritis of the right knee and there is a mild joint effusion which is some fluid in your knee from inflammatory response to the arthritis. We will treat this with high-dose anti-inflammatories and compression. Follow-up with your regular doctor, return with any new or worsening concerns such as developing fevers, inability to move the joint, inability to ambulate or any other concerns. Patient Language: Korean Prescriptions: New acetaminophen [Tylenol Extra Strength] 500 mg tablet 1,000 mg PO TID PRN (Reason: pain) Qty: 30 0RF ketorolac 10 mg tablet 10 mg PO Q8H PRN (Reason: pain) 5 Days Qty: 20 0RF Rx Instructions: maximum total duration of 5 days from all oral, intranasal, or parenteral formulations No Action estradiol [Yuvafem] 10 mcg tablet 10 mcg VAGINAL 2XW Qty: 30 4RF oxybutynin chloride 10 mg tablet extended release 24hr 10 mg PO DAILY aspirin 81 mg capsule 81 mg PO DAILY melatonin 3 mg capsule 3 mg PO QHS losartan 100 mg tablet 100 mg PO DAILY Qty: 90 1RF alendronate 70 mg tablet 70 mg PO WEEKLY Qty: 12 3RF famotidine 20 mg tablet 20 mg PO DAILY PRN (Reason: heartburn) Qty: 90 0RF hydroxyzine HCl 25 mg tablet 25 mg PO QHS PRN (Reason: sleep) Qty: 30 0RF fiber Capsule 2 cap PO DAILY hydrochlorothiazide 12.5 mg capsule 12.5 mg PO DAILY Qty: 90 1RF rosuvastatin 10 mg tablet 10 mg PO DAILY Qty: 90 1RF Follow-up/Referrals: Lis Lorenzana MD [Primary Care Provider] -
[2024-08-06 10:30] VITALS: BP 143/74; PULSE 85; RESP 16; O2SAT 98
[2024-08-06] MEDS: KETOROLAC 10 MG TABLET PO (10:42)
[2024-08-06 11:54] VITALS: BP 158/94; PULSE 86; RESP 16; O2SAT 100
== END 2024-08-06 11:56 | disposition home or self-care (01) ==
PROVIDERS: Emergency Provider Student in an Organized Health Care Education/Training Program; PCP Family Medicine
DX: M17.11 Unilateral primary osteoarthritis, right knee (principal); M25.461 Effusion, right knee; I10 Essential (primary) hypertension; E78.5 Hyperlipidemia, unspecified; E55.9 Vitamin D deficiency, unspecified; M85.851 Other specified disorders of bone density and structure, right thigh; N32.81 Overactive bladder; K21.9 Gastro-esophageal reflux disease without esophagitis; Z87.442 Personal history of urinary calculi; Z87.891 Personal history of nicotine dependence; Z90.710 Acquired absence of both cervix and uterus; Z90.49 Acquired absence of other specified parts of digestive tract
CPT/HCPCS: 73562; 99283; A9270

== ENCOUNTER 2024-09-12 08:59 | Outpatient (CLI) | payer MEDICARE, SELFPAY ==
--- OUTSIDE RECORDS SUMMARY | 2024-09-12 09:30 | XMS_ITS | Clinical Summary ---
Author Organization [facility] Address [address] [place] [address] Care Team Providers Care Side Panel Hanger Name Role Phone Unavailable Primary Care Provider Unavailabl e Source Comments [facility],non-owned Affiliates and Associated Physician Practices is amultiple site organization consisting of ambulatory clinics and hospital sitesin [place], [place], [place] and [place]. This disclosure is being madepursuant to the Care Everywhere program and may not contain all information available regarding this patient. Last updated 18.[facility] Social History Tobacco Use Types Packs/Day Years Used Date Smoking Tobacco: Never Assessed Comments Unknown Sex and Gender Information Value Date Recorded Sex Assigned at Not on file Legal Sex Female 6:34 PM CUT FILER Gender Identity Not on file Sexual Orientation [...] SCREENING 1959 LIPID TESTING 1959 MAMMOGRAM 1959 HIV SCREENING 1974 HEPATITIS C SCREENING 06/25/1977 DTAP/TDAP/TD VACCINES (1 - Tdap) 1978 PNEUMOCOCCAL VACCINE 50+ (1 of 1 - PCV) 2009 ZOSTER VACCINE (1 of 2) 2009 COVID-19 VACCINE ( - 2023-2 5 season) 2024 DEPRESSION SCREENING 05/11/2024 INFLUENZA VACCINE (Season Ended) 2025 Respiratory Syncytial Virus (RSV) Vaccine Pt: or [...] patient's age to complete this topic Insurance [employer]
--- OUTSIDE RECORDS SUMMARY | 2024-09-12 09:30 | XMS_ITS | Encounter Summary ---
Author Organization [facility] Address [address] [place] [address] Care Team Providers Care Leak Detector Name Role Phone Unavailable Primary Care Provider Unavailabl e Encounter Details Date Type Department Care Team (Late st Contact Info) Description 11/18/2018 Lab Requisition [facility] [address] [place] [address] Dyana Grijalva MD [address] [place] [address] Gross hematuria Social History Tobacco Use Types Packs/Day Years Used Date Smoking Tobacco: Never Assessed Comments Unknown Sex and Gender Information Value Date Recorded Sex Assigned at Not on file Legal Sex Female 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 11/19/2018 9:48 AM T [facility] Clinical History Hematuria. 11/19/2018 9:48 AM T [facility] Gross Description Prepared slide (1) received from [facility] labeled [id number], Sly Schaefer . All material will be returned. 11/19/2018 9:48 AM T [facility] Disclaimer The performance characteristics of all immunohistochemical and indirect immunofluorescence stains (if any) cited in this report were determined by the Histopathology Laboratory of [facility]. Some of these tests were developed by [...] the attending (teaching) pathologist. 11/19/2018 9:[address] [facility] Embedded Images 11/19/2018 9:48 AM T [facility] Pathology/Cytolo gy URINE / Unknown 11/16/2018 1:28 PM CDT 11/18/2018 1:28 PM CDT us Dyana Grijalva MD LAB - PATHOLOGY/CYTOLOGY ORDERAB LES Final Result Performing Organization Address [facility]/State/[facility] Co de Phone Number [facility] [address] [phone] documented in this encounter Visit Diagnoses Diagnosis Gross hematuria documented in this encounter
--- OUTSIDE RECORDS SUMMARY | 2024-09-12 09:30 | XMS_ITS | CONTINUITY OF CARE DOCUMENT ---
Author Name cameron barnes Address Unknown Organization [facility] Address [address] [place] [address] [address] [place] [address] Phone [phone] Care Team Providers Care Asbestos Wire Finisher Name Role Phone John VALENTIN, Florentin Unavailable CARLITA NOLASCO MD Unavailable [phone] INSURANCE PROVIDERS Payer name Policy type / Coverage type [place] [employer] republic[employer] ID [employer] OPEN ACCESS Other [id number]
--- OUTSIDE RECORDS SUMMARY | 2024-09-12 09:30 | XMS_ITS | Referral Summary ---
Author Organization [facility] [address] Address [address] [place] [address] Care Team Providers Care Kersey Department Supervisor Name Role Phone Cooper Lorenzana MD Primary [...] on file Legal Sex Female 3:06 AM DIRECTOR OF PUPIL PERSONNEL PROGRAM Gender Identity Not on file Sexual Orientation Not on file Last Filed Vital Signs Vital Sign Reading Time Taken Comments Blood Pressure 120/70 03/14/2024 10:19 AM DIRECTOR OF PUPIL PERSONNEL PROGRAM Pulse 91 03/14/2024 10:19 AM DIRECTOR OF PUPIL PERSONNEL PROGRAM Temperature - - Respiratory Rate - - Oxygen Saturation 97% 03/09/2023 8:53 AM CDT Inhaled Oxygen Concentration - - Weight 72.6 kg (160 lb) 03/14/2024 10:19 AM DIRECTOR OF PUPIL PERSONNEL PROGRAM Height 154.9 cm (5' 1 ) 03/14/2024 10:19 AM DIRECTOR OF PUPIL PERSONNEL PROGRAM Body Mass Index 30.23 03/14/2024 10:19 AM DIRECTOR OF PUPIL PERSONNEL PROGRAM Plan of Treatment Not on file Insurance [employer] [facility] [id number] Care Teams Kersey Department Supervisor Relationship Specialty Start Date End Date Cooper Lorenzana MD PCP - General Family Practice 08/26/21
--- OUTSIDE RECORDS SUMMARY | 2024-09-12 09:30 | XMS_ITS | Clinical Summary ---
Author Organization [facility] [address] Address [address] [place] [address] Care Team Providers Care Digital Marketing Assistant Name Role Phone Cooper Lorenzana MD Primary [...] on file Legal Sex Female 3:06 AM HAND HARDENER Gender Identity Not on file Sexual Orientation Not on file Obstetrics History Last Filed Vital Signs Vital Sign Reading Time Taken Comments Blood Pressure 120/70 03/14/2024 10:19 AM HAND HARDENER Pulse 91 03/14/2024 10:19 AM HAND HARDENER Temperature - - Respiratory Rate - - Oxygen Saturation 97% 03/09/2023 8:53 AM CDT Inhaled Oxygen Concentration - - Weight 72.6 kg (160 lb) 03/14/2024 10:19 AM HAND HARDENER Height 154.9 cm (5' 1 ) 03/14/2024 10:19 AM HAND HARDENER Body Mass Index 30.23 03/14/2024 10:19 AM HAND HARDENER Plan of Treatment Health Maintenance Due Date [...] (#1) 2024 Well Visit 65+ 2024 Insurance [employer] [facility] [id number] Care Teams Digital Marketing Assistant Relationship Specialty Start Date End Date Cooper Lorenzana MD PCP - General Family Practice 08/26/21
[2024-09-12 12:34] LABS: Basophils Absolute Auto 0.1 K/mm3 (0.0-0.1); Basophils Percent Auto 1.8 % (0.2-1.2); Eosinophils Absolute Auto 0.3 K/mm3 (0-0.3); Eosinophils Percent Auto 5.1 % (0-4.4); Hematocrit 43.5 % (37.0-47.0); Hemoglobin 13.4 g/dL (12.0-15.0); Immature Granulocyte Absolute 0.02 K/mm3 (0.00-0.031); Immature Granulocyte Percent A 0.3 % (0-0.5); Lymphocytes Absolute Auto 1.86 K/mm3 (0.9-3.2); Lymphocytes Percent Auto 30.7 % (18.3-44.2); Mean Corpuscular HGB Conc 30.8 g/dl (32-36); Mean Corpuscular Hemoglobin 29.3 pg (26-34); Mean Platelet Volume 10.8 fl (7.4-10.4); Monocytes Absolute Auto 0.7 K/mm3 (0.1-0.6); Monocytes Percent Auto 11.7 % (2.6-8.5); Neutrophils Absolute Auto 3.1 K/mm3 (1.3-6.7); Neutrophils Percent Auto 50.4 % (45.5-73.1); Platelet Count Result 300 k/mm3 (150-375); Red Blood Count 4.58 M/mm3 (4.2-5.4); Red Cell Distribution Width 13.2 % (11.5-14.5); White Blood Count 6.1 K/mm3 (4.5-10.0)
[2024-09-12 12:50] LABS: Alanine Aminotransferase 19 U/L (6-35); Albumin Level 4.2 g/dL (3.5-5.1); Alkaline Phosphatase 79 U/L (38-126); Anion Gap 6 mmol/L (4-12); Aspartate Amino Transferase 36 U/L (14-36); Bilirubin,Total 1.5 mg/dL (0.2-1.3); Blood Urea Nitrogen 16 mg/dL (7-17); Calcium 9.1 mg/dL (8.4-10.2); Carbon Dioxide 33 mmol/L (22-30); Chloride 102 mmol/L (98-107); Cholesterol 157 mg/dL (0-200); Estimated Glomerular Filt Rate > 60; Glucose 95 mg/dL (65-110); HDL Direct 51 mg/dL; Potassium 4.2 mmol/L (3.4-5.0); Sodium 141 mmol/L (137-145); Triglycerides 99 mg/dL (<150)
[2024-09-12 13:01] LABS: LDL Cholesterol Direct 65 mg/dL
[2024-09-12 14:02] LABS: Vitamin D 25 Hydroxy 37.7 ng/mL
[2024-09-12 14:32] LABS: Hemoglobin A1C 5.5 % (<5.7)
== END 2024-09-12 09:00 | disposition home or self-care (01) ==
LOC: ANHGOSHLAB 09:01
PROVIDERS: PCP Family Medicine; Visit Provider Nurse Practitioner Family
DX: R73.03 Prediabetes (principal); E78.5 Hyperlipidemia, unspecified; R53.83 Other fatigue; I10 Essential (primary) hypertension; E55.9 Vitamin D deficiency, unspecified; Z00.00 Encounter for general adult medical examination without abnormal findings
CPT/HCPCS: 36415; 80053; 80061; 82306; 83036; 84443; 85025

== ENCOUNTER 2025-03-16 08:37 | Outpatient (CLI) | payer MEDICARE, SELFPAY ==
[2025-03-16 10:24] LABS: Hematocrit 40.8 % (37.0-47.0); Hemoglobin 13.0 g/dL (12.0-15.0); Immature Granulocyte Percent A 0.5 % (0-0.5); Lymphocytes Absolute Auto 2.03 K/mm3 (0.9-3.2); Mean Corpuscular HGB Conc 31.9 g/dl (32-36); Mean Corpuscular Hemoglobin 29.4 pg (26-34); Mean Corpuscular Volume 92.3 fl (80-100); Nucleated Red Blood Cells Absolute Auto 0.000 K/mm3 (0.0-0.012); Nucleated Red Blood Cells Perc 0.0 % (0.0-0.2); Platelet Count Result 300 k/mm3 (150-375); Red Blood Count 4.42 M/mm3 (4.2-5.4); White Blood Count 6.4 K/mm3 (4.5-10.0)
[2025-03-16 10:57] LABS: Alanine Aminotransferase 19 U/L (6-35); Albumin Level 4.3 g/dL (3.5-5.1); Alkaline Phosphatase 60 U/L (38-126); Anion Gap 7 mmol/L (4-12); Aspartate Amino Transferase 30 U/L (14-36); Bilirubin,Total 1.0 mg/dL (0.2-1.3); Blood Urea Nitrogen 16 mg/dL (7-17); Calcium 9.0 mg/dL (8.4-10.2); Carbon Dioxide 30 mmol/L (22-30); Chloride 102 mmol/L (98-107); Cholesterol 150 mg/dL (0-200); Estimated Glomerular Filt Rate > 60; Glucose 88 mg/dL (65-110); HDL Direct 48 mg/dL; Potassium 3.6 mmol/L (3.4-5.0); Sodium 139 mmol/L (137-145); Total Protein 7.1 g/dL (6.3-8.2); Triglycerides 111 mg/dL (<150)
--- OUTSIDE RECORDS SUMMARY | 2025-03-16 17:23 | XMS_ITS | Clinical Summary ---
Author Organization [facility] [address] Address [address] [place] [address] Care Team Providers Care Dispatcher Service Chief Name Role Phone Cooper Lorenzana MD Primary [...] by mouth nightly at bedtime. 3 Active melatonin tablet Take by mouth Active Active Problems Problem Noted Date Diagnosed Date Palpitations 03/14/2024 Murmur Hypertension Hyperlipidemia Abnormal stress test Resolved Problems Problem Noted Date Diagnosed Date Resolved Date Other chest pain 09/16/2017 03/13/2025 Encounters Date Type Department Care Team Description 03/13/2025 10:00 AM RACKMAN Office Visit [facility] Cardiology [address] [place] [address] Marquita Zuleta MD Pure hypercholesterolemia (Primary Dx); Primary hypertension; Abnormal stress test; Palpitations; Murmur from Last 3 Months Surgical History Surgery Date Site/Laterality Comments WRIST [...] on file Legal Sex Female 3:06 AM RACKMAN Gender Identity Not on file Sexual Orientation Not on file Last Filed Vital Signs Vital Sign Reading Time Taken Comments Blood Pressure 112/72 03/13/2025 9:56 AM RACKMAN Pulse 100 03/13/2025 9:56 AM RACKMAN Temperature - - Respiratory Rate - - Oxygen Saturation 96% 03/13/2025 9:56 AM RACKMAN Inhaled Oxygen Concentration - - Weight 74.4 kg (164 lb) 03/13/2025 9:56 AM RACKMAN Height 154.9 cm (5' 1) 03/13/2025 9:56 AM RACKMAN Body Mass Index 30.99 03/13/2025 9:56 AM RACKMAN Plan of Treatment Health Maintenance Due Date Last Done Comments Breast Cancer Screening-Mammogram 1959 Colon Cancer Screening-Colonoscopy 1959 Depression Screening 1959 Fall Risk Assessment 1959 Hepatitis C Screening 1959 Osteoporosis Screening-Bone Density Scan 1959 Hepatitis B Screening 1977 Pneumococcal vaccine 65+ (1 of 1 - PCV) 2009 Zoster Vaccine (1 of 2) 2009 Well Visit 65+ 2024 Covid-19 Vaccine (4 - 2024-2 6 season) 2025 04/28/2021, 08/10/2020, 07/20/2020 Influenza Vaccine (#1) 2025 3, 04/29/2022, 04/10/2022, Additional history exists DTaP/Tdap/Td Vaccine (3 - Td or Tdap) 05/21/2027 05/21/2017, 05/11/2010 Procedures Procedure Name Priority Date/Time Associated Diagnosis Comments POCT LIPID PANEL Routine 03/13/2025 9:59 AM RACKMAN Pure hypercholesterolemia from Last 3 Months Results * (ABNORMAL) POCT lipid panel (03/13/2025 9:59 AM RACKMAN) Cholesterol, POC 144 <200 MG/DL Comment:Glucose = 105 HDL, POC 48 >=40 mg/dL Triglycerides, POC 161(A) <=149 mg/dL LDL Cholesterol POC 64 <=129 mg/dL Chol/HDL Ratio, POC 1.3 NONE Non-HDL Cholesterol, POC 96 NONE mg/dL Cholesterol Total, POC 144 30 - 199 mg/dL Capillary blood 03/13/2025 9 :59 AM RACKMAN Marquita Zuleta MD POINT OF CARE TEST O RDERABLES Final Result from Last 3 Months Insurance [employer] [facility] [employer] MEDICARE [facility] Address: [address] [place] [address] Care Teams Dispatcher Service Chief Relationship Specialty Start Date End Date Cooper Lorenzana MD PCP - General Family Practice 08/26/21
== END 2025-03-16 08:38 | disposition home or self-care (01) ==
PROVIDERS: PCP Family Medicine; Visit Provider Nurse Practitioner Family
DX: E78.5 Hyperlipidemia, unspecified (principal); I10 Essential (primary) hypertension; E55.9 Vitamin D deficiency, unspecified
CPT/HCPCS: 36415; 80053; 80061; 82306; 85025

== ENCOUNTER 2025-03-22 12:26 | Outpatient (NON) | payer MEDICARE, SELFPAY ==
--- OUTSIDE RECORDS SUMMARY | 2025-03-22 13:32 | XMS_ITS | Clinical Summary ---
Author Organization [facility] Address [address] [place] [address] Care Team Providers Care Education Finance Processor Name Role Phone Unavailable Primary Care Provider Unavailabl e Source Comments [facility],non-owned Affiliates and Associated Physician Practices is amultiple site organization consisting of ambulatory clinics and hospital sitesin [place], [place], [place] and [place]. This disclosure is being madepursuant to the Care Everywhere program and may not contain all information available regarding this patient. Last updated 18.[facility] Social History Tobacco Use Types Packs/Day Years Used Date Smoking Tobacco: Never Assessed Comments Unknown Sex and Gender Information Value Date Recorded Sex Assigned at Not on file Legal Sex Female 6:34 PM POINT OF CARE SPECIALIST Gender Identity Not on file Sexual Orientation [...] 2009 ZOSTER VACCINE (1 of 2) 2009 DEPRESSION SCREENING 05/11/2024 COVID-19 VACCINE (1 - 2023-2 5 season) 2025 INFLUENZA VACCINE (#1) 2025 Respiratory Syncytial Virus (RSV) Vaccine Pt: [...] patient's age to complete this topic Insurance [employer]
--- OUTSIDE RECORDS SUMMARY | 2025-03-22 13:32 | XMS_ITS | Clinical Summary ---
Author Organization [facility] [address] Address [address] [place] [address] Care Team Providers Care Toolroom Keeper Name Role Phone Cooper Lorenzana MD Primary [...] Department Care Team Description 03/13/2025 10:00 AM MOLD CARPENTER Office Visit [facility] Medical Group Cardiology [address] [place] [address] Marquita Zuleta MD Pure hypercholesterolemia [...] on file Legal Sex Female 3:06 AM MOLD CARPENTER Gender Identity Not on file Sexual Orientation Not on file Last Filed Vital Signs Vital Sign Reading Time Taken Comments Blood Pressure 112/72 03/13/2025 9:56 AM MOLD CARPENTER Pulse 100 03/13/2025 9:56 AM MOLD CARPENTER Temperature - - Respiratory Rate - - Oxygen Saturation 96% 03/13/2025 9:56 AM MOLD CARPENTER Inhaled Oxygen Concentration - - Weight 74.4 kg (164 lb) 03/13/2025 9:56 AM MOLD CARPENTER Height 154.9 cm (5' 1) 03/13/2025 9:56 AM MOLD CARPENTER Body Mass Index 30.99 03/13/2025 9:56 AM MOLD CARPENTER Plan of Treatment Health Maintenance Due Date [...] POCT LIPID PANEL Routine 03/13/2025 9:59 AM MOLD CARPENTER Pure hypercholesterolemia from Last 3 Months Results * (ABNORMAL) POCT lipid panel (03/13/2025 9:59 AM MOLD CARPENTER) Cholesterol, POC 144 <200 MG/DL Comment:Glucose = 105 HDL, POC 48 >=40 mg/dL Triglycerides, POC 161(A) <=149 mg/dL LDL Cholesterol POC 64 <=129 mg/dL Chol/HDL Ratio, POC 1.3 NONE Non-HDL Cholesterol, POC 96 NONE mg/dL Cholesterol Total, POC 144 30 - 199 mg/dL Capillary blood 03/13/2025 9 :59 AM MOLD CARPENTER Marquita Zuleta MD POINT OF CARE TEST O RDERABLES Final Result from Last 3 Months Insurance [employer] [facility] AETNA MEDICARE Care Teams Toolroom Keeper Relationship Specialty Start Date End Date Cooper Lorenzana MD PCP - General Family Practice 08/26/21
--- OUTSIDE RECORDS SUMMARY | 2025-03-22 13:32 | XMS_ITS | Encounter Summary ---
Author Organization [facility] Address [address] [place] [address] Care Team Providers Care Vice Chancellor Name Role Phone Unavailable Primary Care Provider Unavailabl e Encounter Details Date Type Department Care Team (Late st Contact Info) Description 11/18/2018 Lab Requisition [facility] [address] [place] [address] Dyana Grijalva MD [address] [place] [address] Gross hematuria Social History Tobacco Use Types Packs/Day Years Used Date Smoking Tobacco: Never Assessed Comments Unknown Sex and Gender Information Value Date Recorded Sex Assigned at Not on file Legal Sex Female 6:34 PM BUTTON SEWER Gender Identity Not on file Sexual Orientation Not on file documented as of this encounter Plan of Treatment Not on file documented as of this encounter Procedures Procedure Name Priority Date/Time Associated Diagnosis Comments PATHOLOGY TISSUE Routine 11/16/2018 1:28 PM CDT Gross hematuria documented in this encounter Results * PATHOLOGY TISSUE (11/16/2018 1:28 PM CDT) Case Report Surgical Pathology Report Case: [id number] Authorizing Provider: Dyana Grijalva MD Collected: 11/16/2018 [...] 11/19/2018 9:48 AM CDT [facility] at 0948 CDT Microscopic Description and Comment Performed. 11/19/2018 9:48 AM T [facility] Clinical History Hematuria. 11/19/2018 9:48 AM T [facility] Gross Description Prepared slide (1) received from [facility] labeled [id number], Sly Schaefer. All material will be returned. 11/19/2018 9:48 AM T [facility] Disclaimer The performance characteristics of all immunohistochemical and indirect immunofluorescence stains (if any) cited in this report were determined by the Histopathology Laboratory of [facility]. Some of these tests were developed by [...] the attending (teaching) pathologist. 11/19/2018 9:48 AM [facility] Embedded Images 11/19/2018 9:48 AM T [facility] Pathology/Cytolo gy URINE / Unknown 11/16/2018 1:28 PM CDT 11/18/2018 1:28 PM CDT us Dyana Grijalva MD LAB - PATHOLOGY/CYTOLOGY ORDERAB LES Final Result Performing Organization Address [facility]/State/[facility] Co de Phone Number [facility] [address] [phone] documented in this encounter Visit Diagnoses Diagnosis Gross hematuria documented in this encounter
== END 2025-03-22 12:27 | disposition home or self-care (01) ==
LOC: ANHGOSHLAB 12:27
PROVIDERS: PCP Family Medicine; Visit Provider Nurse Practitioner Family
DX: R31.9 Hematuria, unspecified (principal)
CPT/HCPCS: 87086

== ENCOUNTER 2025-05-10 10:36 | Outpatient (CLI) | payer MEDICARE, SELFPAY ==
--- NOTE | ~2025-05-10 | DEXA_ITS ---
Bone Density Report Name: PAWAN GARAY Age: 64 Sex: Female Ethnicity: White Date of : 1960 Indication: postmenopausal; screening for osteoporosis; height loss; hysterectomy; secondary osteoporosis; Referring Provider: DEVI OD Study: Bone densitometry was performed. Exam Date: May 10, 2025 Accession number: [id number] Bone Density: Region BMD T-score Z-score Classification AP Spine(L1, L2, L3) 0.925 -0.8 0.9 Normal Femoral Neck (Left) 0.626 -2.0 -0.5 Osteopenia Total Hip (Left) 0.839 -0.8 0.4 Normal Femoral Neck (Right) 0.635 -1.9 -0.4 Osteopenia Total Hip (Right) 0.802 -1.1 0.1 Osteopenia Total Hip Mean 0.821 -1.0 0.3 Normal World Health Organization criteria for BMD impression classify patients as: Normal (T-score at or above -1.0), Osteopenia (T-score between -1.0 and -2.5), or Osteoporosis (T-score at or below -2.5). 10-year Fracture Risk: FRAX not reported because: Treated for osteoporosis Clinical Information Provided by Patient: Has secondary osteoporosis Is being treated for osteoporosis Has used the following medications: Fosamax (i.e. alendronate) Has the following medical conditions: Hysterectomy Patient maximum height was 62.75 Menopause Age: 33 Drinks caffeinated beverages Onset of menses at age 10 Number of children 0 Impression: The patient has low bone mass, based on the Left Femoral Neck T-score. Discussion: It is important to ask patients whether they are taking their medications and to encourage continued and appropriate compliance with their osteoporosis therapies to reduce fracture risk. It is also important to review their risk factors and encourage appropriate calcium and vitamin D intakes, exercise, fall prevention and other lifestyle measures. Follow-Up: Consider a repeat BMD and Vertebral Fracture Assessment (VFA) exam in 2 years or sooner if medically necessary, to reassess this patient's status. Reported by: EDMUNDO on 05/10/2025 2:14:00 PM. Reviewed, dictated and finalized at location A.
--- NOTE | ~2025-05-10 | MM_ITS ---
EXAMINATION: MM screening nancy BI w soila HISTORY: Screening TECHNIQUE: Craniocaudal and mediolateral oblique 3-D tomosynthesis images were obtained and synthetic 2-D images were generated. CAD analysis was submitted and interpreted. COMPARISON: 2022, 2019, and 2018. BREAST PARENCHYMAL COMPOSITION: The breast tissue is heterogeneously dense, which may obscure small masses. FINDINGS: No suspicious masses are seen. There are no suspicious calcifications. No unexplained architectural distortion is seen. There are no skin or nipple abnormalities identified. There is no adenopathy seen on the images submitted. IMPRESSION: No mammographic evidence to suggest malignancy is seen. The patient may return to screening mammography as per ACR guidelines. BI-RADS 1 - Negative. Reviewed, dictated and finalized at location C. NE OILER
--- OUTSIDE RECORDS SUMMARY | 2025-05-10 10:50 | XMS_ITS | Clinical Summary ---
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 Name Role Phone Cooper Lorenzana MD Primary [...] Department Care Team Description 03/13/2025 10:00 AM DRIVER STARTING GATE Office Visit [facility] Cardiology [address] [place] [address] Marquita Zuleta MD Pure hypercholesterolemia [...] on file Legal Sex Female 3:06 AM DRIVER STARTING GATE Gender Identity Not on file Sexual Orientation Not on file Last Filed Vital Signs Vital Sign Reading Time Taken Comments Blood Pressure 112/72 03/13/2025 9:56 AM DRIVER STARTING GATE Pulse 100 03/13/2025 9:56 AM DRIVER STARTING GATE Temperature - - Respiratory Rate - - Oxygen Saturation 96% 03/13/2025 9:56 AM DRIVER STARTING GATE Inhaled Oxygen Concentration - - Weight 74.4 kg (164 lb) 03/13/2025 9:56 AM DRIVER STARTING GATE Height 154.9 cm (5' 1) 03/13/2025 9:56 AM DRIVER STARTING GATE Body Mass Index 30.99 03/13/2025 9:56 AM DRIVER STARTING GATE Plan of Treatment Health Maintenance Due Date [...] POCT LIPID PANEL Routine 03/13/2025 9:59 AM DRIVER STARTING GATE Pure hypercholesterolemia from Last 3 Months Results * (ABNORMAL) POCT lipid panel (03/13/2025 9:59 AM DRIVER STARTING GATE) Cholesterol, POC 144 <200 MG/DL Comment:Glucose = 105 HDL, POC 48 >=40 mg/dL Triglycerides, POC 161(A) <=149 mg/dL LDL Cholesterol POC 64 <=129 mg/dL Chol/HDL Ratio, POC 1.3 NONE Non-HDL Cholesterol, POC 96 NONE mg/dL Cholesterol Total, POC 144 30 - 199 mg/dL Capillary blood 03/13/2025 9 :59 AM DRIVER STARTING GATE Marquita Zuleta MD POINT OF CARE TEST O RDERABLES Final Result from Last 3 Months Insurance [employer] [facility] [employer] MEDICARE Care Teams Steam 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
== END 2025-05-10 10:37 | disposition home or self-care (01) ==
LOC: ANHFOHIMG 10:39
PROVIDERS: PCP Family Medicine; Visit Provider Nurse Practitioner Family
DX: Z12.31 Encounter for screening mammogram for malignant neoplasm of breast (principal); M85.851 Other specified disorders of bone density and structure, right thigh; M85.852 Other specified disorders of bone density and structure, left thigh; Z78.0 Asymptomatic menopausal state
CPT/HCPCS: 77063; 77067; 77080